=== PATIENT | female | born 1970 | race Caucasian/White ===

== ENCOUNTER 2018-05-09 13:37 | Inpatient (IN) | payer OTHER ==
[2018-05-09 15:06] LABS: BASO # 0.1 10^3/uL (0.0-0.2); BASO % 0.7 % (0.0-1.0); EOS # 0.2 10^3/uL (0.0-0.50); EOS % 2.4 % (0.0-3.0); HEMATOCRIT 33.6 % (36.0-47.0); HEMOGLOBIN 11.5 g/dl (12.0-15.5); IMMATURE GRANULOCYTE % 0.3 % (0-3.0); LYMPH # 2.5 10^3/uL (1.5-4.5); LYMPH % 32.4 % (24.0-44.0); MEAN CORPUSCULAR HGB CONC 34.2 g/dl (32.0-36.5); MEAN CORPUSCULAR VOLUME 110.9 fl (80.0-96.0); MONO % 12.5 % (0.0-5.0); NEUTROPHILS % 51.7 % (36.0-66.0); PLATELET COUNT, AUTOMATED 182 10^3/uL (150-450); RED BLOOD COUNT 3.03 10^6/uL (4.00-5.40); RED CELL DISTRIBUTION WIDTH 17.2 % (11.5-14.5); WHITE BLOOD COUNT 7.7 10^3/uL (4.0-10.0)
[2018-05-09 15:19] LABS: INR 1.51; PROTHROMBIN TIME 18.4 SECONDS (12.1-14.4)
[2018-05-09 15:39] LABS: ALBUMIN 1.9 GM/DL (3.2-5.2); ALBUMIN/GLOBULIN RATIO 0.31 (1.00-1.93); ALKALINE PHOSPHATASE 181 U/L (45-117); ALT/SGPT 25 U/L (12-78); ANION GAP 11 MEQ/L (8-16); AST/SGOT 103 U/L (7-37); BILIRUBIN,TOTAL 2.8 MG/DL (0.2-1.0); BLOOD UREA NITROGEN 6 MG/DL (7-18); CALCIUM LEVEL 7.7 MG/DL (8.5-10.1); CARBON DIOXIDE LEVEL 25 MEQ/L (21-32); CHLORIDE LEVEL 98 MEQ/L (98-107); CPK CREATINE PHOSPHOKINASE 53 U/L (26-192); CREATININE FOR GFR 0.63 MG/DL (0.55-1.30); GLOMERULAR FILTRATION RATE > 60.0 (>58); GLUCOSE, FASTING 90 MG/DL (70-100); MB/CK RELATIVE INDEX 2.64 (< OR =4); NT-PRO BNP 70 PG/ML (<125); POTASSIUM SERUM 3.9 MEQ/L (3.5-5.1); SODIUM LEVEL 134 MEQ/L (136-145); TROPONIN I < 0.02 NG/ML (< 0.10)
[2018-05-09] MEDS ORDERED: ISOVUE-370 76% 100ML VIAL (Q9967) As Ordered (15:58)
[2018-05-09] MEDS: FUROSEMIDE 40 MG/4 ML VIAL (J1940) IV (17:25)
[2018-05-09] MEDS: LevoFLOXacin IV 750 MG in APPROPRIATE DILUENT 1 EA IV (17:32)
[2018-05-09 17:40] LABS: FERRITIN 111 NG/ML (8-252)
[2018-05-09] MEDS ORDERED: ONDANSETRON 4MG/2ML VIAL (J2405) IV (17:45)
[2018-05-09] MEDS ORDERED: ALBUTEROL SULFATE 2.5 MG/0.5 ML INH NEB SOLN NEB (19:30)
[2018-05-09] MEDS: FOLIC ACID 1 MG TAB PO (19:30)
[2018-05-09] MEDS: THIAMINE 100 MG TAB PO (19:30)
[2018-05-09] MEDS: HEPARIN SOD (PORCINE) 5000 UNITS/ML VIAL SC (21:00)
[2018-05-10] MEDS: FUROSEMIDE 40 MG/4 ML VIAL (J1940) IV ×3 (01:00→16:23)
[2018-05-10 06:28] LABS: BASO % 0.4 % (0.0-1.0); EOS # 0.1 10^3/uL (0.0-0.50); EOS % 1.3 % (0.0-3.0); HEMATOCRIT 31.5 % (36.0-47.0); HEMOGLOBIN 10.8 g/dl (12.0-15.5); IMMATURE GRANULOCYTE % 0.1 % (0-3.0); LYMPH # 2.2 10^3/uL (1.5-4.5); LYMPH % 30.9 % (24.0-44.0); MEAN CORPUSCULAR HGB CONC 34.3 g/dl (32.0-36.5); MEAN CORPUSCULAR VOLUME 110.9 fl (80.0-96.0); NEUTROPHILS # 3.7 10^3/uL (1.8-7.7); NEUTROPHILS % 53.3 % (36.0-66.0); PLATELET COUNT, AUTOMATED 157 10^3/uL (150-450); RED BLOOD COUNT 2.84 10^6/uL (4.00-5.40); RED CELL DISTRIBUTION WIDTH 16.8 % (11.5-14.5)
[2018-05-10 06:46] LABS: ANION GAP 8 MEQ/L (8-16); BLOOD UREA NITROGEN 7 MG/DL (7-18); CALCIUM LEVEL 7.5 MG/DL (8.5-10.1); CARBON DIOXIDE LEVEL 27 MEQ/L (21-32); CHLORIDE LEVEL 99 MEQ/L (98-107); CREATININE FOR GFR 0.72 MG/DL (0.55-1.30); GLOMERULAR FILTRATION RATE > 60.0 (>58); GLUCOSE, FASTING 88 MG/DL (70-100); MAGNESIUM LEVEL 1.4 MG/DL (1.8-2.4); POTASSIUM SERUM 3.5 MEQ/L (3.5-5.1); SODIUM LEVEL 134 MEQ/L (136-145)
[2018-05-10 07:55] LABS: FREE T4 1.28 NG/DL (0.76-1.46)
[2018-05-10] MEDS: SPIRONOLACTONE 25 MG TAB PO (08:23)
[2018-05-10] MEDS: MAGNESIUM OXIDE 400 MG TAB (MAG-OX) PO ×2 (08:24→20:50)
[2018-05-10] MEDS: THIAMINE 100 MG TAB PO (08:24)
[2018-05-10] MEDS: FOLIC ACID 1 MG TAB PO (08:24)
[2018-05-10 13:00] LABS: RBC BODY FLUID < 2 10^3/uL (<2); WBC BODY FLUID 185 /uL (0-10)
[2018-05-10 13:01] LABS: APPEARANCE, BODY FLUID CLEAR (CLEAR); ASCITES FL COLOR YELLOW (COLORLESS); BF DIFF IF INDICATED? YES (NO); SOURCE, BODY FLUID ASCITES
[2018-05-10 13:21] LABS: SOURCE, BODY FLUID ALBUMIN ASCITES; SOURCE, BODY FLUID GLUCOSE ASCITES; SOURCE, BODY FLUID TOT PROTEIN ASCITES; TOTAL PROTEIN, BODY FLUID 0.9 G/DL (NOT ESTABLISHED)
[2018-05-11] MEDS: FUROSEMIDE 40 MG/4 ML VIAL (J1940) IV ×3 (00:32→17:27)
[2018-05-11 05:58] LABS: HEMATOCRIT 30.4 % (36.0-47.0); HEMOGLOBIN 10.7 g/dl (12.0-15.5); MEAN CORPUSCULAR HEMOGLOBIN 37.8 pg (27.0-33.0); MEAN CORPUSCULAR HGB CONC 35.2 g/dl (32.0-36.5); MEAN CORPUSCULAR VOLUME 107.4 fl (80.0-96.0); PLATELET COUNT, AUTOMATED 135 10^3/uL (150-450); RED BLOOD COUNT 2.83 10^6/uL (4.00-5.40); RED CELL DISTRIBUTION WIDTH 16.6 % (11.5-14.5); WHITE BLOOD COUNT 6.2 10^3/uL (4.0-10.0)
[2018-05-11 06:17] LABS: ALBUMIN 1.5 GM/DL (3.2-5.2); ALBUMIN/GLOBULIN RATIO 0.31 (1.00-1.93); ALKALINE PHOSPHATASE 125 U/L (45-117); ALT/SGPT 18 U/L (12-78); ANION GAP 8 MEQ/L (8-16); AST/SGOT 65 U/L (7-37); BILIRUBIN,TOTAL 2.5 MG/DL (0.2-1.0); BLOOD UREA NITROGEN 7 MG/DL (7-18); CALCIUM LEVEL 7.2 MG/DL (8.5-10.1); CARBON DIOXIDE LEVEL 31 MEQ/L (21-32); CHLORIDE LEVEL 95 MEQ/L (98-107); CREATININE FOR GFR 0.72 MG/DL (0.55-1.30); GLOMERULAR FILTRATION RATE > 60.0 (>58); GLUCOSE, FASTING 121 MG/DL (70-100); POTASSIUM SERUM 2.9 MEQ/L (3.5-5.1); SODIUM LEVEL 134 MEQ/L (136-145); TOTAL PROTEIN 6.4 GM/DL (6.4-8.2)
[2018-05-11] MEDS: POTASSIUM CHLORIDE 10 MEQ SR TABLET PO ×2 (06:50→20:18)
[2018-05-11] MEDS: KCL 10MEQ/100ML SWI (KRUN) 10 MEQ in APPROPRIATE DILUENT 1 EA IV ×4 (06:52→20:20)
[2018-05-11 08:30] LABS: MAGNESIUM LEVEL 1.3 MG/DL (1.8-2.4)
[2018-05-11] MEDS: MULTIVITAMINS/MINERALS THERAP 1 TAB PO (08:44)
[2018-05-11] MEDS: SPIRONOLACTONE 25 MG TAB PO (08:44)
[2018-05-11] MEDS: FOLIC ACID 1 MG TAB PO (08:44)
[2018-05-11] MEDS: THIAMINE 100 MG TAB PO (08:44)
[2018-05-11] MEDS: MAGNESIUM OXIDE 400 MG TAB (MAG-OX) PO ×2 (08:45→20:19)
[2018-05-11] MEDS ORDERED: SLF 3 ML SYR IV (10:15)
[2018-05-11 11:34] LABS: HEPATITIS B SURFACE ANTIGEN NEGATIVE (NEGATIVE)
[2018-05-11] MEDS: PROPRANOLOL 20 MG TAB PO ×3 (12:01→20:55)
[2018-05-11 12:02] LABS: HEPATITIS C VIRUS ABY INDEX 0.2 INDEX (<0.8)
[2018-05-11 12:03] LABS: HEPATITIS B CORE ANTIBODY IGM NEGATIVE (NEGATIVE)
[2018-05-11] MEDS: SLF 3 ML SYR IV ×2 (14:02→20:20)
[2018-05-11 17:41] LABS: ANION GAP 8 MEQ/L (8-16); BLOOD UREA NITROGEN 7 MG/DL (7-18); CALCIUM LEVEL 6.8 MG/DL (8.5-10.1); CARBON DIOXIDE LEVEL 31 MEQ/L (21-32); CHLORIDE LEVEL 95 MEQ/L (98-107); CREATININE FOR GFR 0.78 MG/DL (0.55-1.30); GLOMERULAR FILTRATION RATE > 60.0 (>58); GLUCOSE, FASTING 132 MG/DL (70-100); POTASSIUM SERUM 3.3 MEQ/L (3.5-5.1); SODIUM LEVEL 134 MEQ/L (136-145)
[2018-05-11] MEDS: ACETAMINOPHEN TAB 650MG DOSE (2X325MG) PO (20:20)
[2018-05-12] MEDS: FUROSEMIDE 40 MG/4 ML VIAL (J1940) IV ×3 (00:34→16:23)
[2018-05-12] MEDS: VANCOMYCIN HCL 500 MG in D5W MINI-BAG PLUS 100 ML IV (03:03)
[2018-05-12] MEDS: VANCOMYCIN HCL 1,000 MG, VIAL MATE ADAPTER 1 EACH in D5W 250 ML IV ×3 (04:28→20:31)
[2018-05-12 05:48] LABS: HEMATOCRIT 29.9 % (36.0-47.0); HEMOGLOBIN 10.5 g/dl (12.0-15.5); MEAN CORPUSCULAR HEMOGLOBIN 37.9 pg (27.0-33.0); MEAN CORPUSCULAR HGB CONC 35.1 g/dl (32.0-36.5); MEAN CORPUSCULAR VOLUME 107.9 fl (80.0-96.0); PLATELET COUNT, AUTOMATED 141 10^3/uL (150-450); RED BLOOD COUNT 2.77 10^6/uL (4.00-5.40); RED CELL DISTRIBUTION WIDTH 15.9 % (11.5-14.5); WHITE BLOOD COUNT 6.9 10^3/uL (4.0-10.0)
[2018-05-12 05:57] LABS: INR 1.66; PROTHROMBIN TIME 19.9 SECONDS (12.1-14.4)
[2018-05-12] MEDS: MEROPENEM INJ 1 GM in APPROPRIATE DILUENT 1 EA IV ×3 (06:02→21:48)
[2018-05-12] MEDS: SLF 3 ML SYR IV ×3 (06:02→20:32)
[2018-05-12 06:16] LABS: ALBUMIN 1.4 GM/DL (3.2-5.2); ALBUMIN/GLOBULIN RATIO 0.31 (1.00-1.93); ALKALINE PHOSPHATASE 126 U/L (45-117); ALT/SGPT 16 U/L (12-78); ANION GAP 5 MEQ/L (8-16); AST/SGOT 60 U/L (7-37); BILIRUBIN,TOTAL 1.9 MG/DL (0.2-1.0); BLOOD UREA NITROGEN 7 MG/DL (7-18); CALCIUM LEVEL 6.4 MG/DL (8.5-10.1); CARBON DIOXIDE LEVEL 33 MEQ/L (21-32); CHLORIDE LEVEL 94 MEQ/L (98-107); CREATININE FOR GFR 0.74 MG/DL (0.55-1.30); GLOMERULAR FILTRATION RATE > 60.0 (>58); GLUCOSE, FASTING 120 MG/DL (70-100); POTASSIUM SERUM 3.3 MEQ/L (3.5-5.1); SODIUM LEVEL 132 MEQ/L (136-145); TOTAL PROTEIN 5.9 GM/DL (6.4-8.2)
[2018-05-12] MEDS: POTASSIUM CHLORIDE 10 MEQ SR TABLET PO ×2 (07:54→09:51)
[2018-05-12 08:58] LABS: C REACTIVE PROTEIN QUANTITATIV 1.97 MG/DL (0.00-0.30)
[2018-05-12 08:58] LABS: MAGNESIUM LEVEL 1.3 MG/DL (1.8-2.4)
[2018-05-12] MEDS: PROPRANOLOL 20 MG TAB PO ×2 (09:00→20:32)
[2018-05-12] MEDS: MAGNESIUM OXIDE 400 MG TAB (MAG-OX) PO ×2 (09:50→20:31)
[2018-05-12] MEDS: SPIRONOLACTONE 25 MG TAB PO (09:51)
[2018-05-12] MEDS: THIAMINE 100 MG TAB PO (09:51)
[2018-05-12] MEDS: MULTIVITAMINS/MINERALS THERAP 1 TAB PO (09:51)
[2018-05-12] MEDS: FOLIC ACID 1 MG TAB PO (09:52)
[2018-05-12 14:46] LABS: TYPE AND SCREEN 1
[2018-05-12] MEDS: MAG SULF 1GM/100ML (MAG RUN) 1 GM in APPROPRIATE DILUENT 1 EA IV ×3 (15:14→17:17)
[2018-05-12 19:54] LABS: VANCOMYCIN LEVEL TROUGH 17.1 UG/ML (10.0-20.0)
[2018-05-13] MEDS: FUROSEMIDE 40 MG/4 ML VIAL (J1940) IV ×3 (00:27→17:19)
[2018-05-13] MEDS: VANCOMYCIN HCL 1,000 MG, VIAL MATE ADAPTER 1 EACH in D5W 250 ML IV ×3 (03:39→20:38)
[2018-05-13] MEDS: SLF 3 ML SYR IV ×3 (05:03→20:38)
[2018-05-13] MEDS: MEROPENEM INJ 1 GM in APPROPRIATE DILUENT 1 EA IV ×3 (05:04→21:48)
[2018-05-13 05:50] LABS: HEMATOCRIT 29.6 % (36.0-47.0); HEMOGLOBIN 10.4 g/dl (12.0-15.5); MEAN CORPUSCULAR HEMOGLOBIN 37.8 pg (27.0-33.0); MEAN CORPUSCULAR HGB CONC 35.1 g/dl (32.0-36.5); MEAN CORPUSCULAR VOLUME 107.6 fl (80.0-96.0); PLATELET COUNT, AUTOMATED 153 10^3/uL (150-450); RED BLOOD COUNT 2.75 10^6/uL (4.00-5.40); RED CELL DISTRIBUTION WIDTH 15.7 % (11.5-14.5)
[2018-05-13 06:07] LABS: PROTHROMBIN TIME 19.3 SECONDS (12.1-14.4)
[2018-05-13 06:31] LABS: ALBUMIN 1.8 GM/DL (3.2-5.2); ALBUMIN/GLOBULIN RATIO 0.42 (1.00-1.93); ALKALINE PHOSPHATASE 109 U/L (45-117); ALT/SGPT 14 U/L (12-78); ANION GAP 5 MEQ/L (8-16); AST/SGOT 64 U/L (7-37); BILIRUBIN,TOTAL 2.6 MG/DL (0.2-1.0); BLOOD UREA NITROGEN 7 MG/DL (7-18); C REACTIVE PROTEIN QUANTITATIV 1.44 MG/DL (0.00-0.30); CALCIUM LEVEL 6.5 MG/DL (8.5-10.1); CARBON DIOXIDE LEVEL 33 MEQ/L (21-32); CHLORIDE LEVEL 92 MEQ/L (98-107); GLOMERULAR FILTRATION RATE > 60.0 (>58); GLUCOSE, FASTING 111 MG/DL (70-100); MAGNESIUM LEVEL 1.8 MG/DL (1.8-2.4); POTASSIUM SERUM 3.5 MEQ/L (3.5-5.1); SODIUM LEVEL 130 MEQ/L (136-145); TOTAL PROTEIN 6.1 GM/DL (6.4-8.2)
[2018-05-13] MEDS: SPIRONOLACTONE 25 MG TAB PO (09:10)
[2018-05-13] MEDS: FOLIC ACID 1 MG TAB PO (09:11)
[2018-05-13] MEDS: THIAMINE 100 MG TAB PO (09:11)
[2018-05-13] MEDS: MULTIVITAMINS/MINERALS THERAP 1 TAB PO (09:11)
[2018-05-13] MEDS: PROPRANOLOL 20 MG TAB PO ×2 (09:11→20:38)
[2018-05-13] MEDS: MAGNESIUM OXIDE 400 MG TAB (MAG-OX) PO ×2 (09:11→20:38)
[2018-05-13 16:27] LABS: KETONE, URINE AUTO RFX TRACE mg/dL (NEGATIVE); LEUKOCYTE ESTERASE UR AUTO RFX NEGATIVE (NEGATIVE); MUCUS, URINE RFX SMALL (NEGATIVE); NITRITE, URINE AUTO RFX NEGATIVE (NEGATIVE); RBC, URINE AUTO RFX 2 /HPF (0-3); SPECIFIC GRAVITY UR AUTO RFX 1.018 (1.002-1.035); SQUAM EPITHELIAL CELL UR AURFX 6 /HPF (0-6); WBC, URINE AUTO RFX 2 /HPF (0-3)
[2018-05-14] MEDS: FUROSEMIDE 40 MG/4 ML VIAL (J1940) IV (00:19)
[2018-05-14] MEDS: VANCOMYCIN HCL 1,000 MG, VIAL MATE ADAPTER 1 EACH in D5W 250 ML IV ×3 (03:38→22:12)
[2018-05-14] MEDS: SLF 3 ML SYR IV ×3 (05:09→21:17)
[2018-05-14] MEDS: MEROPENEM INJ 1 GM in APPROPRIATE DILUENT 1 EA IV ×3 (05:09→21:17)
[2018-05-14 05:21] LABS: HEMATOCRIT 30.7 % (36.0-47.0); HEMOGLOBIN 10.9 g/dl (12.0-15.5); MEAN CORPUSCULAR HEMOGLOBIN 38.2 pg (27.0-33.0); MEAN CORPUSCULAR HGB CONC 35.5 g/dl (32.0-36.5); MEAN CORPUSCULAR VOLUME 107.7 fl (80.0-96.0); PLATELET COUNT, AUTOMATED 165 10^3/uL (150-450); RED BLOOD COUNT 2.85 10^6/uL (4.00-5.40); RED CELL DISTRIBUTION WIDTH 15.6 % (11.5-14.5)
[2018-05-14 05:34] LABS: INR 1.56; PROTHROMBIN TIME 18.9 SECONDS (12.1-14.4)
[2018-05-14 05:53] LABS: ALBUMIN 1.8 GM/DL (3.2-5.2); ALBUMIN/GLOBULIN RATIO 0.41 (1.00-1.93); ALKALINE PHOSPHATASE 112 U/L (45-117); ALT/SGPT 19 U/L (12-78); ANION GAP 7 MEQ/L (8-16); AST/SGOT 73 U/L (7-37); BILIRUBIN,TOTAL 1.9 MG/DL (0.2-1.0); BLOOD UREA NITROGEN 6 MG/DL (7-18); C REACTIVE PROTEIN QUANTITATIV 1.24 MG/DL (0.00-0.30); CALCIUM LEVEL 6.9 MG/DL (8.5-10.1); CARBON DIOXIDE LEVEL 32 MEQ/L (21-32); CHLORIDE LEVEL 91 MEQ/L (98-107); CREATININE FOR GFR 0.63 MG/DL (0.55-1.30); GLOMERULAR FILTRATION RATE > 60.0 (>58); GLUCOSE, FASTING 125 MG/DL (70-100); MAGNESIUM LEVEL 1.7 MG/DL (1.8-2.4); POTASSIUM SERUM 2.9 MEQ/L (3.5-5.1); SODIUM LEVEL 130 MEQ/L (136-145); TOTAL PROTEIN 6.2 GM/DL (6.4-8.2)
[2018-05-14] MEDS: POTASSIUM CHLORIDE 10 MEQ SR TABLET PO ×3 (06:07→08:10)
[2018-05-14 06:39] LABS: ERYTHROCYTE SEDIMENTATION RATE 40 mm/hr (0-20)
[2018-05-14] MEDS: MULTIVITAMINS/MINERALS THERAP 1 TAB PO (08:09)
[2018-05-14] MEDS: MAGNESIUM OXIDE 400 MG TAB (MAG-OX) PO ×2 (08:09→21:17)
[2018-05-14] MEDS: FOLIC ACID 1 MG TAB PO (08:09)
[2018-05-14] MEDS: FUROSEMIDE 40 MG TAB PO (08:09)
[2018-05-14] MEDS: THIAMINE 100 MG TAB PO (08:09)
[2018-05-14] MEDS: SPIRONOLACTONE 50 MG TAB PO (08:10)
[2018-05-14] MEDS: PROPRANOLOL 20 MG TAB PO ×2 (08:10→21:17)
[2018-05-14 11:25] LABS: VANCOMYCIN LEVEL TROUGH 22.2 UG/ML (10.0-20.0)
[2018-05-14] MEDS: CETIRIZINE (ZyrTEC) 10 MG TAB PO (21:17)
[2018-05-15] MEDS: SLF 3 ML SYR IV ×3 (05:05→22:19)
[2018-05-15] MEDS: MEROPENEM INJ 1 GM in APPROPRIATE DILUENT 1 EA IV ×3 (05:05→22:19)
[2018-05-15] MEDS: VANCOMYCIN HCL 1,000 MG, VIAL MATE ADAPTER 1 EACH in D5W 250 ML IV (05:35)
[2018-05-15 06:13] LABS: BASO % 0.4 % (0.0-1.0); EOS # 0.3 10^3/uL (0.0-0.50); EOS % 3.3 % (0.0-3.0); HEMATOCRIT 31.8 % (36.0-47.0); IMMATURE GRANULOCYTE % 0.5 % (0-3.0); LYMPH # 2.6 10^3/uL (1.5-4.5); LYMPH % 32.7 % (24.0-44.0); MEAN CORPUSCULAR HEMOGLOBIN 38.2 pg (27.0-33.0); MEAN CORPUSCULAR HGB CONC 34.6 g/dl (32.0-36.5); MEAN CORPUSCULAR VOLUME 110.4 fl (80.0-96.0); MONO % 12.7 % (0.0-5.0); NEUTROPHILS # 3.9 10^3/uL (1.8-7.7); NEUTROPHILS % 50.4 % (36.0-66.0); PLATELET COUNT, AUTOMATED 173 10^3/uL (150-450); RED BLOOD COUNT 2.88 10^6/uL (4.00-5.40); RED CELL DISTRIBUTION WIDTH 15.4 % (11.5-14.5); WHITE BLOOD COUNT 7.8 10^3/uL (4.0-10.0)
[2018-05-15 06:25] LABS: PROTHROMBIN TIME 17.4 SECONDS (12.1-14.4)
[2018-05-15 06:39] LABS: ALBUMIN 1.6 GM/DL (3.2-5.2); ALBUMIN/GLOBULIN RATIO 0.33 (1.00-1.93); ALKALINE PHOSPHATASE 112 U/L (45-117); ALT/SGPT 23 U/L (12-78); ANION GAP 5 MEQ/L (8-16); AST/SGOT 96 U/L (7-37); BILIRUBIN,TOTAL 1.7 MG/DL (0.2-1.0); BLOOD UREA NITROGEN 7 MG/DL (7-18); C REACTIVE PROTEIN QUANTITATIV 1.19 MG/DL (0.00-0.30); CALCIUM LEVEL 7.2 MG/DL (8.5-10.1); CARBON DIOXIDE LEVEL 31 MEQ/L (21-32); CHLORIDE LEVEL 92 MEQ/L (98-107); CREATININE FOR GFR 0.66 MG/DL (0.55-1.30); GLOMERULAR FILTRATION RATE > 60.0 (>58); GLUCOSE, FASTING 138 MG/DL (70-100); POTASSIUM SERUM 3.7 MEQ/L (3.5-5.1); SODIUM LEVEL 128 MEQ/L (136-145); TOTAL PROTEIN 6.4 GM/DL (6.4-8.2)
[2018-05-15] MEDS: FOLIC ACID 1 MG TAB PO (08:29)
[2018-05-15] MEDS: SPIRONOLACTONE 50 MG TAB PO (08:29)
[2018-05-15] MEDS: FUROSEMIDE 40 MG TAB PO (08:30)
[2018-05-15] MEDS: THIAMINE 100 MG TAB PO (08:30)
[2018-05-15] MEDS: MULTIVITAMINS/MINERALS THERAP 1 TAB PO (08:30)
[2018-05-15] MEDS: MAGNESIUM OXIDE 400 MG TAB (MAG-OX) PO ×2 (08:30→20:12)
[2018-05-15] MEDS: PROPRANOLOL 20 MG TAB PO ×2 (08:30→20:04)
[2018-05-15] MEDS: hydrOXYzine 25 MG TAB PO ×4 (11:28→20:12)
[2018-05-15] MEDS: FLUCONAZOLE 100 MG TAB PO (11:28)
[2018-05-15] MEDS: LACTOBACILLUS ACIDOPHILUS CAP (BACID) PO ×2 (11:28→18:32)
[2018-05-15 13:20] LABS: VANCOMYCIN LEVEL TROUGH 21.1 UG/ML (10.0-20.0)
[2018-05-15] MEDS: ACETAMINOPHEN TAB 650MG DOSE (2X325MG) PO (14:03)
[2018-05-15] MEDS: VANCOMYCIN HCL 750 MG, VIAL MATE ADAPTER 1 EACH in D5W 250 ML IV (16:38)
[2018-05-15] MEDS: CETIRIZINE (ZyrTEC) 10 MG TAB PO (20:12)
[2018-05-16] MEDS: VANCOMYCIN HCL 750 MG, VIAL MATE ADAPTER 1 EACH in D5W 250 ML IV ×3 (01:01→19:45)
[2018-05-16] MEDS: MEROPENEM INJ 1 GM in APPROPRIATE DILUENT 1 EA IV ×3 (06:03→20:51)
[2018-05-16] MEDS: SLF 3 ML SYR IV ×3 (06:04→20:52)
[2018-05-16 06:13] LABS: HEMATOCRIT 31.3 % (36.0-47.0); HEMOGLOBIN 11.2 g/dl (12.0-15.5); MEAN CORPUSCULAR HEMOGLOBIN 38.5 pg (27.0-33.0); MEAN CORPUSCULAR HGB CONC 35.8 g/dl (32.0-36.5); MEAN CORPUSCULAR VOLUME 107.6 fl (80.0-96.0); PLATELET COUNT, AUTOMATED 168 10^3/uL (150-450); RED BLOOD COUNT 2.91 10^6/uL (4.00-5.40); WHITE BLOOD COUNT 7.6 10^3/uL (4.0-10.0)
[2018-05-16 06:35] LABS: ALBUMIN 1.8 GM/DL (3.2-5.2); ALBUMIN/GLOBULIN RATIO 0.38 (1.00-1.93); ALKALINE PHOSPHATASE 113 U/L (45-117); ALT/SGPT 25 U/L (12-78); ANION GAP 7 MEQ/L (8-16); AST/SGOT 106 U/L (7-37); BILIRUBIN,TOTAL 2.1 MG/DL (0.2-1.0); BLOOD UREA NITROGEN 7 MG/DL (7-18); C REACTIVE PROTEIN QUANTITATIV 1.19 MG/DL (0.00-0.30); CALCIUM LEVEL 7.6 MG/DL (8.5-10.1); CARBON DIOXIDE LEVEL 30 MEQ/L (21-32); CHLORIDE LEVEL 90 MEQ/L (98-107); GLOMERULAR FILTRATION RATE > 60.0 (>58); GLUCOSE, FASTING 88 MG/DL (70-100); MAGNESIUM LEVEL 2.1 MG/DL (1.8-2.4); POTASSIUM SERUM 3.8 MEQ/L (3.5-5.1); SODIUM LEVEL 127 MEQ/L (136-145); TOTAL PROTEIN 6.6 GM/DL (6.4-8.2)
[2018-05-16] MEDS: LACTOBACILLUS ACIDOPHILUS CAP (BACID) PO ×2 (08:39→18:22)
[2018-05-16] MEDS: FLUCONAZOLE 100 MG TAB PO (08:39)
[2018-05-16] MEDS: FOLIC ACID 1 MG TAB PO (08:40)
[2018-05-16] MEDS: THIAMINE 100 MG TAB PO (08:40)
[2018-05-16] MEDS: hydrOXYzine 25 MG TAB PO ×4 (08:40→20:26)
[2018-05-16] MEDS: MULTIVITAMINS/MINERALS THERAP 1 TAB PO (08:40)
[2018-05-16] MEDS: MAGNESIUM OXIDE 400 MG TAB (MAG-OX) PO ×2 (08:40→20:26)
[2018-05-16] MEDS: SPIRONOLACTONE 50 MG TAB PO (08:40)
[2018-05-16] MEDS: PROPRANOLOL 20 MG TAB PO ×2 (08:40→20:26)
[2018-05-16] MEDS: FUROSEMIDE 40 MG TAB PO (08:41)
[2018-05-16 10:46] LABS: TYPE AND SCREEN 1
[2018-05-16 13:26] LABS: ANION GAP 5 MEQ/L (8-16); BLOOD UREA NITROGEN 7 MG/DL (7-18); CALCIUM LEVEL 7.8 MG/DL (8.5-10.1); CARBON DIOXIDE LEVEL 32 MEQ/L (21-32); CHLORIDE LEVEL 88 MEQ/L (98-107); CREATININE FOR GFR 0.58 MG/DL (0.55-1.30); GLOMERULAR FILTRATION RATE > 60.0 (>58); GLUCOSE, FASTING 102 MG/DL (70-100); POTASSIUM SERUM 3.9 MEQ/L (3.5-5.1); SODIUM LEVEL 125 MEQ/L (136-145)
[2018-05-16] MEDS: SODIUM CHLORIDE 1 GM TAB PO ×2 (13:27→18:21)
[2018-05-16] MEDS ORDERED: SILVER NITRATE APPLICATOR As Ordered (15:35)
[2018-05-16] MEDS: SILVER NITRATE APPLICATOR TOP (15:40)
[2018-05-16 16:25] LABS: VANCOMYCIN LEVEL TROUGH 19.1 UG/ML (10.0-20.0)
[2018-05-16 19:20] LABS: ANION GAP 5 MEQ/L (8-16); BLOOD UREA NITROGEN 7 MG/DL (7-18); CALCIUM LEVEL 7.6 MG/DL (8.5-10.1); CARBON DIOXIDE LEVEL 31 MEQ/L (21-32); CHLORIDE LEVEL 90 MEQ/L (98-107); CREATININE FOR GFR 0.66 MG/DL (0.55-1.30); GLOMERULAR FILTRATION RATE > 60.0 (>58); GLUCOSE, FASTING 123 MG/DL (70-100); POTASSIUM SERUM 3.7 MEQ/L (3.5-5.1); SODIUM LEVEL 126 MEQ/L (136-145)
[2018-05-16] MEDS: CETIRIZINE (ZyrTEC) 10 MG TAB PO (20:25)
[2018-05-17 01:05] LABS: ANION GAP 6 MEQ/L (8-16); BLOOD UREA NITROGEN 7 MG/DL (7-18); CARBON DIOXIDE LEVEL 30 MEQ/L (21-32); CHLORIDE LEVEL 94 MEQ/L (98-107); CREATININE FOR GFR 0.67 MG/DL (0.55-1.30); GLOMERULAR FILTRATION RATE > 60.0 (>58); GLUCOSE, FASTING 137 MG/DL (70-100); POTASSIUM SERUM 3.8 MEQ/L (3.5-5.1); SODIUM LEVEL 130 MEQ/L (136-145)
[2018-05-17] MEDS: VANCOMYCIN HCL 750 MG, VIAL MATE ADAPTER 1 EACH in D5W 250 ML IV ×3 (04:18→20:43)
[2018-05-17] MEDS: MEROPENEM INJ 1 GM in APPROPRIATE DILUENT 1 EA IV ×3 (05:27→21:56)
[2018-05-17] MEDS: SLF 3 ML SYR IV ×3 (05:27→20:44)
[2018-05-17 05:51] LABS: HEMATOCRIT 28.9 % (36.0-47.0); MEAN CORPUSCULAR HEMOGLOBIN 37.9 pg (27.0-33.0); MEAN CORPUSCULAR HGB CONC 34.6 g/dl (32.0-36.5); MEAN CORPUSCULAR VOLUME 109.5 fl (80.0-96.0); PLATELET COUNT, AUTOMATED 150 10^3/uL (150-450); RED BLOOD COUNT 2.64 10^6/uL (4.00-5.40); RED CELL DISTRIBUTION WIDTH 14.6 % (11.5-14.5); WHITE BLOOD COUNT 5.4 10^3/uL (4.0-10.0)
[2018-05-17 05:59] LABS: ALBUMIN 1.9 GM/DL (3.2-5.2); ALBUMIN/GLOBULIN RATIO 0.46 (1.00-1.93); ALKALINE PHOSPHATASE 101 U/L (45-117); ALT/SGPT 22 U/L (12-78); ANION GAP 5 MEQ/L (8-16); AST/SGOT 76 U/L (7-37); BILIRUBIN,TOTAL 1.6 MG/DL (0.2-1.0); BLOOD UREA NITROGEN 6 MG/DL (7-18); C REACTIVE PROTEIN QUANTITATIV 1.21 MG/DL (0.00-0.30); CALCIUM LEVEL 7.4 MG/DL (8.5-10.1); CARBON DIOXIDE LEVEL 30 MEQ/L (21-32); CHLORIDE LEVEL 93 MEQ/L (98-107); CREATININE FOR GFR 0.66 MG/DL (0.55-1.30); GLOMERULAR FILTRATION RATE > 60.0 (>58); GLUCOSE, FASTING 175 MG/DL (70-100); POTASSIUM SERUM 3.4 MEQ/L (3.5-5.1); SODIUM LEVEL 128 MEQ/L (136-145)
[2018-05-17 08:41] LABS: NT-PRO BNP 190 PG/ML (<125)
[2018-05-17] MEDS: POTASSIUM CHLORIDE 10 MEQ SR TABLET PO (09:49)
[2018-05-17] MEDS: THIAMINE 100 MG TAB PO (09:50)
[2018-05-17] MEDS: SPIRONOLACTONE 50 MG TAB PO (09:50)
[2018-05-17] MEDS: FOLIC ACID 1 MG TAB PO (09:50)
[2018-05-17] MEDS: MAGNESIUM OXIDE 400 MG TAB (MAG-OX) PO ×2 (09:50→20:43)
[2018-05-17] MEDS: hydrOXYzine 25 MG TAB PO ×4 (09:50→20:43)
[2018-05-17] MEDS: PROPRANOLOL 20 MG TAB PO ×2 (09:50→20:47)
[2018-05-17] MEDS: SODIUM CHLORIDE 1 GM TAB PO ×3 (09:51→18:32)
[2018-05-17] MEDS: LACTOBACILLUS ACIDOPHILUS CAP (BACID) PO ×2 (09:51→18:32)
[2018-05-17] MEDS: FUROSEMIDE 40 MG TAB PO (09:51)
[2018-05-17] MEDS: FLUCONAZOLE 100 MG TAB PO (09:51)
[2018-05-17] MEDS: MULTIVITAMINS/MINERALS THERAP 1 TAB PO (09:51)
[2018-05-17 13:40] LABS: ANION GAP 7 MEQ/L (8-16); BLOOD UREA NITROGEN 6 MG/DL (7-18); CALCIUM LEVEL 7.2 MG/DL (8.5-10.1); CARBON DIOXIDE LEVEL 28 MEQ/L (21-32); CHLORIDE LEVEL 94 MEQ/L (98-107); CREATININE FOR GFR 0.65 MG/DL (0.55-1.30); GLOMERULAR FILTRATION RATE > 60.0 (>58); GLUCOSE, FASTING 112 MG/DL (70-100); POTASSIUM SERUM 3.6 MEQ/L (3.5-5.1); SODIUM LEVEL 129 MEQ/L (136-145)
[2018-05-17 18:35] LABS: ANION GAP 6 MEQ/L (8-16); BLOOD UREA NITROGEN 7 MG/DL (7-18); CALCIUM LEVEL 7.4 MG/DL (8.5-10.1); CARBON DIOXIDE LEVEL 30 MEQ/L (21-32); CHLORIDE LEVEL 94 MEQ/L (98-107); CREATININE FOR GFR 0.69 MG/DL (0.55-1.30); GLOMERULAR FILTRATION RATE > 60.0 (>58); GLUCOSE, FASTING 103 MG/DL (70-100); POTASSIUM SERUM 4.2 MEQ/L (3.5-5.1); SODIUM LEVEL 130 MEQ/L (136-145)
[2018-05-17] MEDS: CETIRIZINE (ZyrTEC) 10 MG TAB PO (20:43)
[2018-05-18 00:51] LABS: ANION GAP 8 MEQ/L (8-16); BLOOD UREA NITROGEN 7 MG/DL (7-18); CALCIUM LEVEL 7.1 MG/DL (8.5-10.1); CARBON DIOXIDE LEVEL 28 MEQ/L (21-32); CHLORIDE LEVEL 96 MEQ/L (98-107); CREATININE FOR GFR 0.65 MG/DL (0.55-1.30); GLOMERULAR FILTRATION RATE > 60.0 (>58); GLUCOSE, FASTING 114 MG/DL (70-100); POTASSIUM SERUM 4.3 MEQ/L (3.5-5.1); SODIUM LEVEL 132 MEQ/L (136-145)
[2018-05-18] MEDS: VANCOMYCIN HCL 750 MG, VIAL MATE ADAPTER 1 EACH in D5W 250 ML IV ×3 (04:20→20:19)
[2018-05-18] MEDS: SLF 3 ML SYR IV ×3 (05:41→21:54)
[2018-05-18] MEDS: MEROPENEM INJ 1 GM in APPROPRIATE DILUENT 1 EA IV ×3 (05:41→21:54)
[2018-05-18 07:12] LABS: ANION GAP 4 MEQ/L (8-16); BLOOD UREA NITROGEN 6 MG/DL (7-18); C REACTIVE PROTEIN QUANTITATIV 1.16 MG/DL (0.00-0.30); CALCIUM LEVEL 7.5 MG/DL (8.5-10.1); CARBON DIOXIDE LEVEL 30 MEQ/L (21-32); CHLORIDE LEVEL 95 MEQ/L (98-107); GLOMERULAR FILTRATION RATE > 60.0 (>58); GLUCOSE, FASTING 102 MG/DL (70-100); SODIUM LEVEL 129 MEQ/L (136-145)
[2018-05-18] MEDS: LACTOBACILLUS ACIDOPHILUS CAP (BACID) PO ×2 (08:12→17:36)
[2018-05-18] MEDS: MULTIVITAMINS/MINERALS THERAP 1 TAB PO (08:12)
[2018-05-18] MEDS: hydrOXYzine 25 MG TAB PO ×4 (08:12→20:18)
[2018-05-18] MEDS: FLUCONAZOLE 100 MG TAB PO (08:12)
[2018-05-18] MEDS: THIAMINE 100 MG TAB PO (08:12)
[2018-05-18] MEDS: FUROSEMIDE 40 MG TAB PO (08:12)
[2018-05-18] MEDS: MAGNESIUM OXIDE 400 MG TAB (MAG-OX) PO ×2 (08:13→20:18)
[2018-05-18] MEDS: FOLIC ACID 1 MG TAB PO (08:13)
[2018-05-18] MEDS: PROPRANOLOL 20 MG TAB PO (08:14)
[2018-05-18] MEDS: SPIRONOLACTONE 50 MG TAB PO (08:15)
[2018-05-18] MEDS: SODIUM CHLORIDE 1 GM TAB PO ×3 (08:18→17:36)
[2018-05-18 12:51] LABS: ANION GAP 6 MEQ/L (8-16); BLOOD UREA NITROGEN 7 MG/DL (7-18); CALCIUM LEVEL 7.3 MG/DL (8.5-10.1); CARBON DIOXIDE LEVEL 29 MEQ/L (21-32); CHLORIDE LEVEL 95 MEQ/L (98-107); CREATININE FOR GFR 0.66 MG/DL (0.55-1.30); GLOMERULAR FILTRATION RATE > 60.0 (>58); GLUCOSE, FASTING 124 MG/DL (70-100); POTASSIUM SERUM 4.2 MEQ/L (3.5-5.1); SODIUM LEVEL 130 MEQ/L (136-145)
[2018-05-18] MEDS: FUROSEMIDE 20 MG/2 ML VIAL (J1940) IV ×2 (14:31→20:19)
[2018-05-18] MEDS: ACETAMINOPHEN TAB 650MG DOSE (2X325MG) PO (14:34)
[2018-05-18 15:29] LABS: TYPE AND SCREEN 1
[2018-05-18 19:25] LABS: ANION GAP 6 MEQ/L (8-16); BLOOD UREA NITROGEN 8 MG/DL (7-18); CALCIUM LEVEL 7.6 MG/DL (8.5-10.1); CARBON DIOXIDE LEVEL 28 MEQ/L (21-32); CHLORIDE LEVEL 94 MEQ/L (98-107); CREATININE FOR GFR 0.68 MG/DL (0.55-1.30); GLOMERULAR FILTRATION RATE > 60.0 (>58); GLUCOSE, FASTING 129 MG/DL (70-100); POTASSIUM SERUM 3.9 MEQ/L (3.5-5.1); SODIUM LEVEL 128 MEQ/L (136-145)
[2018-05-18] MEDS: CETIRIZINE (ZyrTEC) 10 MG TAB PO (20:18)
[2018-05-18 20:59] LABS: C REACTIVE PROTEIN QUANTITATIV 1.18 MG/DL (0.00-0.30)
[2018-05-18 21:25] LABS: ERYTHROCYTE SEDIMENTATION RATE 54 mm/hr (0-20)
[2018-05-19] MEDS: FUROSEMIDE 20 MG/2 ML VIAL (J1940) IV ×6 (02:00→23:48)
[2018-05-19] MEDS: VANCOMYCIN HCL 750 MG, VIAL MATE ADAPTER 1 EACH in D5W 250 ML IV ×3 (03:32→22:42)
[2018-05-19] MEDS: SLF 3 ML SYR IV ×3 (05:57→22:15)
[2018-05-19] MEDS: MEROPENEM INJ 1 GM in APPROPRIATE DILUENT 1 EA IV ×2 (05:58→14:50)
[2018-05-19 06:34] LABS: C REACTIVE PROTEIN QUANTITATIV 1.08 MG/DL (0.00-0.30)
[2018-05-19] MEDS: MULTIVITAMINS/MINERALS THERAP 1 TAB PO (08:20)
[2018-05-19] MEDS: THIAMINE 100 MG TAB PO (08:20)
[2018-05-19] MEDS: LACTOBACILLUS ACIDOPHILUS CAP (BACID) PO ×2 (08:20→17:37)
[2018-05-19] MEDS: FLUCONAZOLE 100 MG TAB PO (08:20)
[2018-05-19] MEDS: MAGNESIUM OXIDE 400 MG TAB (MAG-OX) PO ×2 (08:20→22:15)
[2018-05-19] MEDS: FOLIC ACID 1 MG TAB PO (08:21)
[2018-05-19] MEDS: hydrOXYzine 25 MG TAB PO ×5 (08:21→22:15)
[2018-05-19] MEDS: SODIUM CHLORIDE 1 GM TAB PO ×3 (08:21→17:36)
[2018-05-19] MEDS: FLUDROCORTISONE ACETATE 0.1 MG TAB PO (10:49)
[2018-05-19 11:30] LABS: VANCOMYCIN LEVEL TROUGH 19.6 UG/ML (10.0-20.0)
[2018-05-19] MEDS: ACETAMINOPHEN TAB 650MG DOSE (2X325MG) PO (14:07)
[2018-05-19] MEDS: MIDODRINE 2.5 MG TAB PO ×2 (14:08→17:36)
[2018-05-19 15:20] LABS: ANION GAP 7 MEQ/L (8-16); BLOOD UREA NITROGEN 8 MG/DL (7-18); CALCIUM LEVEL 7.5 MG/DL (8.5-10.1); CARBON DIOXIDE LEVEL 26 MEQ/L (21-32); CHLORIDE LEVEL 95 MEQ/L (98-107); GLOMERULAR FILTRATION RATE > 60.0 (>58); GLUCOSE, FASTING 114 MG/DL (70-100); POTASSIUM SERUM 4.2 MEQ/L (3.5-5.1); SODIUM LEVEL 128 MEQ/L (136-145)
[2018-05-19] MEDS: TOLVAPTAN 7.5 MG HALF-TAB PO (16:34)
[2018-05-19 17:29] LABS: TYPE AND SCREEN 1
[2018-05-19] MEDS: CETIRIZINE (ZyrTEC) 10 MG TAB PO (22:15)
[2018-05-20] MEDS: MEROPENEM INJ 1 GM in APPROPRIATE DILUENT 1 EA IV ×4 (01:08→21:42)
[2018-05-20] MEDS: FUROSEMIDE 20 MG/2 ML VIAL (J1940) IV ×2 (04:12→08:01)
[2018-05-20] MEDS: VANCOMYCIN HCL 750 MG, VIAL MATE ADAPTER 1 EACH in D5W 250 ML IV ×3 (04:12→20:12)
[2018-05-20] MEDS: SLF 3 ML SYR IV ×3 (06:00→21:42)
[2018-05-20 06:39] LABS: ANION GAP 7 MEQ/L (8-16); BLOOD UREA NITROGEN 8 MG/DL (7-18); CALCIUM LEVEL 7.9 MG/DL (8.5-10.1); CARBON DIOXIDE LEVEL 29 MEQ/L (21-32); CHLORIDE LEVEL 96 MEQ/L (98-107); CREATININE FOR GFR 0.71 MG/DL (0.55-1.30); GLOMERULAR FILTRATION RATE > 60.0 (>58); GLUCOSE, FASTING 118 MG/DL (70-100); POTASSIUM SERUM 3.3 MEQ/L (3.5-5.1); SODIUM LEVEL 132 MEQ/L (136-145)
[2018-05-20 06:58] LABS: BASO % 0.8 % (0.0-1.0); EOS # 0.2 10^3/uL (0.0-0.50); EOS % 4.2 % (0.0-3.0); HEMATOCRIT 27.3 % (36.0-47.0); HEMOGLOBIN 9.6 g/dl (12.0-15.5); IMMATURE GRANULOCYTE % 0.2 % (0-3.0); LYMPH # 1.6 10^3/uL (1.5-4.5); LYMPH % 29.8 % (24.0-44.0); MEAN CORPUSCULAR HEMOGLOBIN 37.6 pg (27.0-33.0); MEAN CORPUSCULAR HGB CONC 35.2 g/dl (32.0-36.5); MEAN CORPUSCULAR VOLUME 107.1 fl (80.0-96.0); MONO # 0.9 10^3/uL (0.0-0.8); MONO % 16.1 % (0.0-5.0); NEUTROPHILS # 2.6 10^3/uL (1.8-7.7); NEUTROPHILS % 48.9 % (36.0-66.0); PLATELET COUNT, AUTOMATED 189 10^3/uL (150-450); RED BLOOD COUNT 2.55 10^6/uL (4.00-5.40); RED CELL DISTRIBUTION WIDTH 14.3 % (11.5-14.5); WHITE BLOOD COUNT 5.3 10^3/uL (4.0-10.0)
[2018-05-20 07:13] LABS: INR 1.41; PROTHROMBIN TIME 17.5 SECONDS (12.1-14.4)
[2018-05-20 07:14] LABS: PARTIAL THROMBOPLASTIN TIME 38.7 SECONDS (25.4-37.6)
[2018-05-20 07:24] LABS: LACTIC ACID SEPSIS PROTOCOL 1.7 MMOL/L (0.4-2.0)
[2018-05-20 07:29] LABS: ALBUMIN 2.4 GM/DL (3.2-5.2); ALBUMIN/GLOBULIN RATIO 0.55 (1.00-1.93); ALKALINE PHOSPHATASE 97 U/L (45-117); ALT/SGPT 26 U/L (12-78); AST/SGOT 83 U/L (7-37); BILIRUBIN,TOTAL 1.6 MG/DL (0.2-1.0); C REACTIVE PROTEIN QUANTITATIV 1.25 MG/DL (0.00-0.30); TOTAL PROTEIN 6.8 GM/DL (6.4-8.2)
[2018-05-20 07:32] LABS: ERYTHROCYTE SEDIMENTATION RATE 63 mm/hr (0-20)
[2018-05-20] MEDS ORDERED: ISOVUE-370 76% 100ML VIAL (Q9967) As Ordered (07:37)
[2018-05-20] MEDS: MAGNESIUM OXIDE 400 MG TAB (MAG-OX) PO ×2 (08:19→20:12)
[2018-05-20] MEDS: MULTIVITAMINS/MINERALS THERAP 1 TAB PO (08:19)
[2018-05-20] MEDS: hydrOXYzine 25 MG TAB PO ×4 (08:19→20:12)
[2018-05-20] MEDS: FLUCONAZOLE 100 MG TAB PO (08:19)
[2018-05-20] MEDS: POTASSIUM CHLORIDE 10 MEQ SR TABLET PO ×2 (08:19→22:00)
[2018-05-20] MEDS: FOLIC ACID 1 MG TAB PO (08:19)
[2018-05-20] MEDS: THIAMINE 100 MG TAB PO (08:19)
[2018-05-20] MEDS: LACTOBACILLUS ACIDOPHILUS CAP (BACID) PO ×2 (08:20→17:45)
[2018-05-20] MEDS: SODIUM CHLORIDE 1 GM TAB PO ×3 (08:25→17:45)
[2018-05-20] MEDS: MIDODRINE 2.5 MG TAB PO ×3 (08:25→16:21)
[2018-05-20] MEDS: ACETAMINOPHEN TAB 650MG DOSE (2X325MG) PO ×2 (08:29→20:19)
[2018-05-20 10:21] LABS: ANION GAP 8 MEQ/L (8-16); BLOOD UREA NITROGEN 8 MG/DL (7-18); CALCIUM LEVEL 8.1 MG/DL (8.5-10.1); CARBON DIOXIDE LEVEL 28 MEQ/L (21-32); CHLORIDE LEVEL 99 MEQ/L (98-107); CREATININE FOR GFR 0.71 MG/DL (0.55-1.30); GLOMERULAR FILTRATION RATE > 60.0 (>58); GLUCOSE, FASTING 128 MG/DL (70-100); POTASSIUM SERUM 3.7 MEQ/L (3.5-5.1); SODIUM LEVEL 135 MEQ/L (136-145)
[2018-05-20] MEDS: GASTROGRAFIN SOLUTION 30ML PO ×4 (11:12→13:04)
[2018-05-20 14:22] LABS: LACTIC ACID SEPSIS PROTOCOL 2.2 MMOL/L (0.4-2.0)
[2018-05-20 16:15] LABS: ANION GAP 7 MEQ/L (8-16); BLOOD UREA NITROGEN 8 MG/DL (7-18); CALCIUM LEVEL 7.7 MG/DL (8.5-10.1); CARBON DIOXIDE LEVEL 28 MEQ/L (21-32); CHLORIDE LEVEL 100 MEQ/L (98-107); CREATININE FOR GFR 0.82 MG/DL (0.55-1.30); GLOMERULAR FILTRATION RATE > 60.0 (>58); GLUCOSE, FASTING 122 MG/DL (70-100); POTASSIUM SERUM 3.7 MEQ/L (3.5-5.1); SODIUM LEVEL 135 MEQ/L (136-145)
[2018-05-20] MEDS: CETIRIZINE (ZyrTEC) 10 MG TAB PO (20:12)
[2018-05-20 22:23] LABS: ANION GAP 9 MEQ/L (8-16); BLOOD UREA NITROGEN 8 MG/DL (7-18); CALCIUM LEVEL 7.6 MG/DL (8.5-10.1); CARBON DIOXIDE LEVEL 27 MEQ/L (21-32); CHLORIDE LEVEL 98 MEQ/L (98-107); CREATININE FOR GFR 0.77 MG/DL (0.55-1.30); GLOMERULAR FILTRATION RATE > 60.0 (>58); GLUCOSE, FASTING 124 MG/DL (70-100); SODIUM LEVEL 134 MEQ/L (136-145)
[2018-05-20 22:30] LABS: MAGNESIUM LEVEL 1.6 MG/DL (1.8-2.4)
[2018-05-20] MEDS: MAG SULF 1GM/100ML (MAG RUN) 1 GM in APPROPRIATE DILUENT 1 EA IV (23:17)
[2018-05-21] MEDS: FUROSEMIDE 20 MG/2 ML VIAL (J1940) IV ×5 (00:31→23:43)
[2018-05-21] MEDS: VANCOMYCIN HCL 750 MG, VIAL MATE ADAPTER 1 EACH in D5W 250 ML IV ×2 (03:56→12:59)
[2018-05-21 04:18] LABS: KETONE, URINE AUTO RFX NEGATIVE (NEGATIVE); LEUKOCYTE ESTERASE UR AUTO RFX NEGATIVE (NEGATIVE); NITRITE, URINE AUTO RFX NEGATIVE (NEGATIVE); RBC, URINE AUTO RFX 2 /HPF (0-3); SPECIFIC GRAVITY UR AUTO RFX 1.004 (1.002-1.035); SQUAM EPITHELIAL CELL UR AURFX 1 /HPF (0-6); WBC, URINE AUTO RFX 0 /HPF (0-3)
[2018-05-21 05:17] LABS: ALBUMIN/GLOBULIN RATIO 0.45 (1.00-1.93); ALKALINE PHOSPHATASE 114 U/L (45-117); ALT/SGPT 30 U/L (12-78); ANION GAP 6 MEQ/L (8-16); AST/SGOT 86 U/L (7-37); BILIRUBIN,DIRECT 0.8 MG/DL (0.0-0.2); BILIRUBIN,TOTAL 1.2 MG/DL (0.2-1.0); BLOOD UREA NITROGEN 7 MG/DL (7-18); CALCIUM LEVEL 7.8 MG/DL (8.5-10.1); CARBON DIOXIDE LEVEL 28 MEQ/L (21-32); CHLORIDE LEVEL 99 MEQ/L (98-107); CREATININE FOR GFR 0.74 MG/DL (0.55-1.30); GLOMERULAR FILTRATION RATE > 60.0 (>58); GLUCOSE, FASTING 135 MG/DL (70-100); MAGNESIUM LEVEL 2.1 MG/DL (1.8-2.4); POTASSIUM SERUM 4.2 MEQ/L (3.5-5.1); SODIUM LEVEL 133 MEQ/L (136-145); TOTAL PROTEIN 6.4 GM/DL (6.4-8.2)
[2018-05-21] MEDS: SLF 3 ML SYR IV ×3 (06:01→23:43)
[2018-05-21] MEDS: MEROPENEM INJ 1 GM in APPROPRIATE DILUENT 1 EA IV ×2 (06:02→15:13)
[2018-05-21] MEDS: hydrOXYzine 25 MG TAB PO ×4 (08:08→20:27)
[2018-05-21] MEDS: LACTOBACILLUS ACIDOPHILUS CAP (BACID) PO ×2 (08:08→18:02)
[2018-05-21] MEDS: FLUCONAZOLE 100 MG TAB PO (08:08)
[2018-05-21] MEDS: MIDODRINE 2.5 MG TAB PO ×3 (08:08→15:13)
[2018-05-21] MEDS: THIAMINE 100 MG TAB PO (08:08)
[2018-05-21] MEDS: MAGNESIUM OXIDE 400 MG TAB (MAG-OX) PO ×2 (08:08→20:27)
[2018-05-21] MEDS: MULTIVITAMINS/MINERALS THERAP 1 TAB PO (08:08)
[2018-05-21] MEDS: FOLIC ACID 1 MG TAB PO (08:08)
[2018-05-21 08:40] LABS: ANION GAP 7 MEQ/L (8-16); BLOOD UREA NITROGEN 6 MG/DL (7-18); CALCIUM LEVEL 8.3 MG/DL (8.5-10.1); CARBON DIOXIDE LEVEL 29 MEQ/L (21-32); CHLORIDE LEVEL 99 MEQ/L (98-107); CREATININE FOR GFR 0.71 MG/DL (0.55-1.30); GLOMERULAR FILTRATION RATE > 60.0 (>58); GLUCOSE, FASTING 95 MG/DL (70-100); SODIUM LEVEL 135 MEQ/L (136-145)
[2018-05-21 08:44] LABS: LACTIC ACID SEPSIS PROTOCOL 1.5 MMOL/L (0.4-2.0)
[2018-05-21] MEDS ORDERED: LIDOCAINE 1% MDV 20ML VIAL As Ordered (10:29)
[2018-05-21 12:22] LABS: BF MONONUCLEAR CELL % 96.4 % (0-0); BF POLYMORPHONUCLEAR CELL % 3.6 % (0-0); RBC BODY FLUID < 2 10^3/uL (<2); WBC BODY FLUID 192 /uL (0-10)
[2018-05-21 12:23] LABS: APPEARANCE, BODY FLUID HAZY (CLEAR); BF DIFF IF INDICATED? YES (NO); PERITONEAL FL COLOR PALE YELLOW (COLORLESS); SOURCE, BODY FLUID PERITONEAL
[2018-05-21] MEDS: ACETAMINOPHEN TAB 650MG DOSE (2X325MG) PO (12:58)
[2018-05-21 16:18] LABS: ANION GAP 8 MEQ/L (8-16); BLOOD UREA NITROGEN 8 MG/DL (7-18); CALCIUM LEVEL 7.9 MG/DL (8.5-10.1); CARBON DIOXIDE LEVEL 28 MEQ/L (21-32); CHLORIDE LEVEL 98 MEQ/L (98-107); CREATININE FOR GFR 0.74 MG/DL (0.55-1.30); GLOMERULAR FILTRATION RATE > 60.0 (>58); GLUCOSE, FASTING 108 MG/DL (70-100); POTASSIUM SERUM 3.8 MEQ/L (3.5-5.1); SODIUM LEVEL 134 MEQ/L (136-145)
[2018-05-21 16:35] LABS: GAMMA GLUTAMYLTRANSPEPTIDASE 113 U/L (5-55)
[2018-05-21 16:39] LABS: LDH LACTATE DEHYDROGENASE 231 U/L (84-246)
[2018-05-21] MEDS: CETIRIZINE (ZyrTEC) 10 MG TAB PO (20:27)
[2018-05-22] MEDS: FUROSEMIDE 20 MG/2 ML VIAL (J1940) IV ×2 (06:00→12:15)
[2018-05-22 06:36] LABS: ANION GAP 7 MEQ/L (8-16); BLOOD UREA NITROGEN 8 MG/DL (7-18); CALCIUM LEVEL 8.1 MG/DL (8.5-10.1); CARBON DIOXIDE LEVEL 29 MEQ/L (21-32); CHLORIDE LEVEL 98 MEQ/L (98-107); GLOMERULAR FILTRATION RATE > 60.0 (>58); GLUCOSE, FASTING 108 MG/DL (70-100); SODIUM LEVEL 134 MEQ/L (136-145)
[2018-05-22 06:40] LABS: ALBUMIN/GLOBULIN RATIO 0.47 (1.00-1.93); ALKALINE PHOSPHATASE 101 U/L (45-117); ALT/SGPT 26 U/L (12-78); AST/SGOT 71 U/L (7-37); BILIRUBIN,DIRECT 0.8 MG/DL (0.0-0.2); BILIRUBIN,TOTAL 1.3 MG/DL (0.2-1.0); TOTAL PROTEIN 6.3 GM/DL (6.4-8.2)
[2018-05-22] MEDS: SLF 3 ML SYR IV ×3 (06:46→21:17)
[2018-05-22 08:35] LABS: ALPHA FETOPROTEIN TUMOR QUANT 4.4 NG/ML (<8.1)
[2018-05-22] MEDS: MAGNESIUM OXIDE 400 MG TAB (MAG-OX) PO ×2 (09:08→21:17)
[2018-05-22] MEDS: MULTIVITAMINS/MINERALS THERAP 1 TAB PO (09:09)
[2018-05-22] MEDS: THIAMINE 100 MG TAB PO (09:09)
[2018-05-22] MEDS: FOLIC ACID 1 MG TAB PO (09:09)
[2018-05-22] MEDS: LACTOBACILLUS ACIDOPHILUS CAP (BACID) PO ×2 (09:09→17:21)
[2018-05-22] MEDS: hydrOXYzine 25 MG TAB PO ×4 (09:09→21:16)
[2018-05-22] MEDS: MIDODRINE 2.5 MG TAB PO ×3 (09:09→17:21)
[2018-05-22] MEDS: FUROSEMIDE 40 MG TAB PO (17:21)
[2018-05-22] MEDS: ACETAMINOPHEN TAB 650MG DOSE (2X325MG) PO (17:21)
[2018-05-22] MEDS: CETIRIZINE (ZyrTEC) 10 MG TAB PO (21:16)
[2018-05-23] MEDS: SLF 3 ML SYR IV ×3 (05:27→21:34)
[2018-05-23 06:40] LABS: ALBUMIN/GLOBULIN RATIO 0.43 (1.00-1.93); ALKALINE PHOSPHATASE 108 U/L (45-117); ALT/SGPT 25 U/L (12-78); ANION GAP 7 MEQ/L (8-16); AST/SGOT 69 U/L (7-37); BILIRUBIN,DIRECT 0.8 MG/DL (0.0-0.2); BILIRUBIN,TOTAL 1.3 MG/DL (0.2-1.0); BLOOD UREA NITROGEN 8 MG/DL (7-18); CARBON DIOXIDE LEVEL 28 MEQ/L (21-32); CHLORIDE LEVEL 98 MEQ/L (98-107); CREATININE FOR GFR 0.73 MG/DL (0.55-1.30); GLOMERULAR FILTRATION RATE > 60.0 (>58); GLUCOSE, FASTING 101 MG/DL (70-100); POTASSIUM SERUM 3.8 MEQ/L (3.5-5.1); SODIUM LEVEL 133 MEQ/L (136-145); TOTAL PROTEIN 6.7 GM/DL (6.4-8.2)
[2018-05-23 08:07] LABS: ALPHA 1 ANTITRYPSIN 176 mg/dL (90-200)
[2018-05-23] MEDS ORDERED: HYDROCORTISONE 2.5% 20GM OINTMENT TOP (08:15)
[2018-05-23] MEDS: LACTOBACILLUS ACIDOPHILUS CAP (BACID) PO ×2 (08:42→17:09)
[2018-05-23] MEDS: THIAMINE 100 MG TAB PO (08:42)
[2018-05-23] MEDS: hydrOXYzine 25 MG TAB PO ×4 (08:42→21:34)
[2018-05-23] MEDS: MAGNESIUM OXIDE 400 MG TAB (MAG-OX) PO ×2 (08:42→21:34)
[2018-05-23] MEDS: MULTIVITAMINS/MINERALS THERAP 1 TAB PO (08:42)
[2018-05-23] MEDS: FOLIC ACID 1 MG TAB PO (08:43)
[2018-05-23] MEDS: ACETAMINOPHEN TAB 650MG DOSE (2X325MG) PO (09:06)
[2018-05-23 10:02] LABS: HEPATITIS A ANTIBODY IGM NEGATIVE (NEGATIVE)
[2018-05-23 10:07] LABS: HIV 1&2 SCREEN CENTAUR NEGATIVE (NEGATIVE)
[2018-05-23] MEDS: KETOCONAZOLE 2% CREAM TOP (13:34)
[2018-05-23 14:10] LABS: CERULOPLASMIN 18.7 mg/dL (19.0-39.0)
[2018-05-23 14:29] LABS: POTASSIUM RANDOM URINE 56.3 MEQ/L; SODIUM,RANDOM URINE < 10 MEQ/L
[2018-05-23] MEDS: SPIRONOLACTONE 50 MG TAB PO (17:09)
[2018-05-23] MEDS: CETIRIZINE (ZyrTEC) 10 MG TAB PO (21:34)
[2018-05-24] MEDS: SLF 3 ML SYR IV ×4 (05:37→20:53)
[2018-05-24 07:40] LABS: ALBUMIN/GLOBULIN RATIO 0.44 (1.00-1.93); ALKALINE PHOSPHATASE 95 U/L (45-117); ALT/SGPT 24 U/L (12-78); ANION GAP 7 MEQ/L (8-16); AST/SGOT 71 U/L (7-37); BILIRUBIN,DIRECT 0.9 MG/DL (0.0-0.2); BILIRUBIN,TOTAL 1.7 MG/DL (0.2-1.0); BLOOD UREA NITROGEN 7 MG/DL (7-18); CARBON DIOXIDE LEVEL 27 MEQ/L (21-32); CHLORIDE LEVEL 99 MEQ/L (98-107); CREATININE FOR GFR 0.68 MG/DL (0.55-1.30); GLOMERULAR FILTRATION RATE > 60.0 (>58); GLUCOSE, FASTING 98 MG/DL (70-100); POTASSIUM SERUM 3.6 MEQ/L (3.5-5.1); SODIUM LEVEL 133 MEQ/L (136-145); TOTAL PROTEIN 6.5 GM/DL (6.4-8.2)
[2018-05-24] MEDS: LACTOBACILLUS ACIDOPHILUS CAP (BACID) PO ×2 (08:56→17:05)
[2018-05-24] MEDS: FOLIC ACID 1 MG TAB PO (08:56)
[2018-05-24] MEDS: hydrOXYzine 25 MG TAB PO ×4 (08:56→20:48)
[2018-05-24] MEDS: MAGNESIUM OXIDE 400 MG TAB (MAG-OX) PO ×2 (08:56→20:48)
[2018-05-24] MEDS: THIAMINE 100 MG TAB PO (08:56)
[2018-05-24] MEDS: MULTIVITAMINS/MINERALS THERAP 1 TAB PO (08:56)
[2018-05-24] MEDS: SPIRONOLACTONE 50 MG TAB PO (08:56)
[2018-05-24 12:33] LABS: SODIUM,RANDOM URINE < 10 MEQ/L
[2018-05-24] MEDS: FUROSEMIDE 20 MG TAB PO (12:56)
[2018-05-24 14:13] LABS: ANTI DOUBLE STRAND-DNA AB 2 IU/mL (0-9); ANTI-MITOCHONDRIAL ANTIBODY 2.6 Units (0.0-20.0); ANTINUCLEAR ANTIBODIES DIRECT Positive (Negative); QuantiFERON-TB Gold Plus Negative (Negative); RNP ANTIBODIES <0.2 AI (0.0-0.9); SJOGREN'S ANTI SS-A <0.2 AI (0.0-0.9); SJOGREN'S ANTI SS-B 1.8 AI (0.0-0.9); SMITH ANTIBODIES <0.2 AI (0.0-0.9)
[2018-05-24 14:13] LABS: ANTI-SMOOTH MUSCLE ANTIBODY 21 Units (0-19)
[2018-05-24] MEDS: ACETAMINOPHEN TAB 650MG DOSE (2X325MG) PO (17:06)
[2018-05-24 17:40] LABS: HEPATITIS BE ANTIGEN Negative (Negative)
[2018-05-24 17:40] LABS: HEPATITIS A IgG TOTAL Positive (Negative); LIVER-KIDNEY MICROSOMAL ABY 1.3 Units (0.0-20.0)
[2018-05-24] MEDS: CETIRIZINE (ZyrTEC) 10 MG TAB PO (20:49)
[2018-05-25 05:10] LABS: SODIUM,RANDOM URINE < 10 MEQ/L
[2018-05-25 06:58] LABS: ALBUMIN/GLOBULIN RATIO 0.44 (1.00-1.93); ALKALINE PHOSPHATASE 92 U/L (45-117); ALT/SGPT 23 U/L (12-78); ANION GAP 9 MEQ/L (8-16); AST/SGOT 70 U/L (7-37); BILIRUBIN,DIRECT 0.7 MG/DL (0.0-0.2); BILIRUBIN,TOTAL 1.3 MG/DL (0.2-1.0); BLOOD UREA NITROGEN 7 MG/DL (7-18); CALCIUM LEVEL 7.8 MG/DL (8.5-10.1); CARBON DIOXIDE LEVEL 28 MEQ/L (21-32); CHLORIDE LEVEL 99 MEQ/L (98-107); CREATININE FOR GFR 0.72 MG/DL (0.55-1.30); GLOMERULAR FILTRATION RATE > 60.0 (>58); GLUCOSE, FASTING 94 MG/DL (70-100); POTASSIUM SERUM 3.4 MEQ/L (3.5-5.1); SODIUM LEVEL 136 MEQ/L (136-145); TOTAL PROTEIN 6.5 GM/DL (6.4-8.2)
[2018-05-25] MEDS: LACTOBACILLUS ACIDOPHILUS CAP (BACID) PO (08:07)
[2018-05-25] MEDS: MAGNESIUM OXIDE 400 MG TAB (MAG-OX) PO (08:07)
[2018-05-25] MEDS: THIAMINE 100 MG TAB PO (08:08)
[2018-05-25] MEDS: hydrOXYzine 25 MG TAB PO (08:08)
[2018-05-25] MEDS: FUROSEMIDE 20 MG TAB PO (08:08)
[2018-05-25] MEDS: SPIRONOLACTONE 50 MG TAB PO (08:08)
[2018-05-25] MEDS: FOLIC ACID 1 MG TAB PO (08:08)
[2018-05-25] MEDS: MULTIVITAMINS/MINERALS THERAP 1 TAB PO (08:08)
[2018-05-28 12:12] LABS: HEPATITIS B SURFACE ANTIBODY NEGATIVE (POSITIVE)
== END 2018-05-25 11:50 | disposition home or self-care (01) | DRG 280 ==
LOC: M MS4PR 05-23 09:00 → M MSPAV 05-24 15:10 → M ED 13:37 → M MSPAV 05-15 11:52 → M ED INP 17:35 → M PCU 20:29
PROC: 0W9G3ZZ Drainage of Peritoneal Cavity, Percutaneous Approach (ICD-10-PCS; principal; 2018-05-10)
PROC: 30233J1 Transfusion of Nonautologous Serum Albumin into Peripheral Vein, Percutaneous Approach (ICD-10-PCS; 2018-05-12)
DX: K70.31 Alcoholic cirrhosis of liver with ascites (principal); J18.9 Pneumonia, unspecified organism; K76.6 Portal hypertension; E46 Unspecified protein-calorie malnutrition; E87.1 Hypo-osmolality and hyponatremia; E87.6 Hypokalemia; T50.2X5A Adverse effect of carbonic-anhydrase inhibitors, benzothiadiazides and other diuretics, initial encounter; L85.3 Xerosis cutis; L21.8 Other seborrheic dermatitis; J45.909 Unspecified asthma, uncomplicated; Z79.899 Other long term (current) drug therapy; Z88.0 Allergy status to penicillin; Z91.030 Bee allergy status; Z88.8 Allergy status to other drugs, medicaments and biological substances; Z68.26 Body mass index [BMI] 26.0-26.9, adult

== ENCOUNTER → 2018-06-08 | Outpatient (CLI) | payer OTHER ==
[2018-06-08 19:15] LABS: ANION GAP 7 MEQ/L (8-16); BLOOD UREA NITROGEN 6 MG/DL (7-18); CALCIUM LEVEL 8.6 MG/DL (8.5-10.1); CARBON DIOXIDE LEVEL 29 MEQ/L (21-32); CHLORIDE LEVEL 96 MEQ/L (98-107); CREATININE FOR GFR 0.87 MG/DL (0.55-1.30); GLOMERULAR FILTRATION RATE > 60.0 (>58); GLUCOSE, FASTING 147 MG/DL (70-100); IRON (FE) 96 UG/DL (50-170); PERCENT SATURATION 54.2 % (13.2-45.0); POTASSIUM SERUM 3.3 MEQ/L (3.5-5.1); SODIUM LEVEL 132 MEQ/L (136-145); TOTAL IRON BINDING CAPACITY 177 UG/DL (250-450)
[2018-06-08 19:40] LABS: UREA NITROGEN RANDOM URINE 137 MG/DL
[2018-06-08 19:40] LABS: CREATININE,RANDOM URINE 34.9 MG/DL; SODIUM,RANDOM URINE 100 MEQ/L
== END ==
LOC: M ADAMS 14:12
DX: K70.31 Alcoholic cirrhosis of liver with ascites (principal)
CPT/HCPCS: 83550

== ENCOUNTER 2018-06-12 12:25 | Day surgery (SDC) | payer OTHER ==
[~2018-06-12 12:25] MED LIST: NS 1,000 ML IV
[2018-06-12] MEDS ORDERED: LIDOCAINE 2% INJ 100 MG/5 ML SDV (FOR ANES.) As Ordered (12:59)
[2018-06-12] MEDS ORDERED: PROPOFOL 200 MG/20 ML VIAL As Ordered ×2 (12:59→13:38)
[2018-06-12] MEDS ORDERED: fentaNYL 100 MCG/2 ML INJECTION (J3010) As Ordered (13:00)
== END 2018-06-12 14:25 | disposition home or self-care (01) ==
LOC: M OPP 14:25
DX: K74.60 Unspecified cirrhosis of liver (principal); I85.10 Secondary esophageal varices without bleeding; K25.9 Gastric ulcer, unspecified as acute or chronic, without hemorrhage or perforation; K29.70 Gastritis, unspecified, without bleeding
CPT/HCPCS: 43239

== ENCOUNTER → 2018-11-06 | Outpatient (REF) | payer OTHER ==
[~2018-11-06] MED LIST changes: +ALDA50TA2 PO; +AZEL1SPR3; +CENT1TAB PO; +DISU250T; +FOLI1TAB11 PO; +FURO20TA2 PO; +HYDR25OIN TOP; +KETO2CR TOP; -NS 1,000 ML IV; +POTA10TA14 PO; +PROAAER10 INH; +THIA100TA PO
[2018-11-06 17:11] LABS: BLOOD UREA NITROGEN 12 MG/DL (7-18); CALCIUM LEVEL 8.9 MG/DL (8.5-10.1); CARBON DIOXIDE LEVEL 29 MEQ/L (21-32); CHLORIDE LEVEL 101 MEQ/L (98-107); CREATININE FOR GFR 0.88 MG/DL (0.55-1.30); GLOMERULAR FILTRATION RATE > 60.0 (>58); GLUCOSE, FASTING 112 MG/DL (70-100); MAGNESIUM LEVEL 1.9 MG/DL (1.8-2.4); PHOSPHORUS LEVEL 3.6 MG/DL (2.5-4.9); SODIUM LEVEL 136 MEQ/L (136-145)
[2018-11-06 17:20] LABS: BASO % 0.6 % (0.0-1.0); EOS # 0.3 10^3/uL (0.0-0.50); EOS % 4.1 % (0.0-3.0); HEMATOCRIT 35.5 % (36.0-47.0); HEMOGLOBIN 11.6 g/dl (12.0-15.5); LYMPH % 30.2 % (24.0-44.0); MEAN CORPUSCULAR HEMOGLOBIN 29.8 pg (27.0-33.0); MEAN CORPUSCULAR HGB CONC 32.7 g/dl (32.0-36.5); MEAN CORPUSCULAR VOLUME 91.3 fl (80.0-96.0); MONO % 14.5 % (0.0-5.0); NEUTROPHILS # 3.3 10^3/uL (1.8-7.7); NEUTROPHILS % 50.3 % (36.0-66.0); PLATELET COUNT, AUTOMATED 206 10^3/uL (150-450); RED BLOOD COUNT 3.89 10^6/uL (4.00-5.40); WHITE BLOOD COUNT 6.5 10^3/uL (4.0-10.0)
== END ==
LOC: M LABDRWAD 15:52
PROVIDERS: ATTEND Internal Medicine Gastroenterology
DX: K70.31 Alcoholic cirrhosis of liver with ascites (principal); I85.00 Esophageal varices without bleeding; K25.9 Gastric ulcer, unspecified as acute or chronic, without hemorrhage or perforation

== ENCOUNTER → 2018-11-29 | Outpatient (REF) | payer OTHER ==
[~2018-11-29] MED LIST changes: +FOLI400T PO; +MULTCAP PO; +PANT40TA3 PO; +PROP10TA56 PO
[2018-11-29 19:24] LABS: ALBUMIN 3.6 GM/DL (3.2-5.2); ALT/SGPT 24 U/L (12-78); BILIRUBIN,TOTAL 0.4 MG/DL (0.2-1.0); BLOOD UREA NITROGEN 6 MG/DL (7-18); CALCIUM LEVEL 8.1 MG/DL (8.5-10.1); CARBON DIOXIDE LEVEL 29 MEQ/L (21-32); CHLORIDE LEVEL 103 MEQ/L (98-107); CPK CREATINE PHOSPHOKINASE 101 U/L (26-192); CREATININE FOR GFR 0.81 MG/DL (0.55-1.30); FREE T4 1.24 NG/DL (0.76-1.46); GLOMERULAR FILTRATION RATE > 60.0 (>58); GLUCOSE, FASTING 196 MG/DL (70-100); MAGNESIUM LEVEL 2.1 MG/DL (1.8-2.4); POTASSIUM SERUM 3.8 MEQ/L (3.5-5.1); RHEUMATOID FACTOR QUANT 20.1 IU/ML (<15.0); SODIUM LEVEL 138 MEQ/L (136-145); TOTAL PROTEIN 8.5 GM/DL (6.4-8.2); VITAMIN B12 LEVEL 481 PG/ML
[2018-12-02 00:07] LABS: ANA (HEP2) Positive (.)
[2018-12-04 00:06] LABS: Lyme Disease IgG Ab 18 kDa Ban Absent (.); Lyme Disease IgG Ab 23 kDa Ban Absent (.); Lyme Disease IgG Ab 28 kDa Ban Absent (.); Lyme Disease IgG Ab 30 kDa Ban Absent (.); Lyme Disease IgG Ab 39 kDa Ban Absent (.); Lyme Disease IgG Ab 41 kDa Ban Absent (.); Lyme Disease IgG Ab 45 kDa Ban Absent (.); Lyme Disease IgG Ab 58 kDa Ban Absent (.); Lyme Disease IgG Ab 66 kDa Ban Absent (.); Lyme Disease IgG Ab 93 kDa Ban Present (.); Lyme Disease IgG West Blot Int Negative (.); Lyme Disease IgG/IgM Antibodie <0.91 ISR (0.00-0.90); Lyme Disease IgM Ab 23 kDa Ban Absent (.); Lyme Disease IgM Ab 39 kDa Ban Absent (.); Lyme Disease IgM Ab 41 kDa Ban Present (.); Lyme Disease IgM Ab Quantitati 1.02 index (0.00-0.79); Lyme Disease IgM West Blot Int Negative (.)
== END ==
LOC: M SFHCADAM 11:21
PROVIDERS: ATTEND Physician Assistant
DX: M54.9 Dorsalgia, unspecified (principal); R76.8 Other specified abnormal immunological findings in serum; K74.60 Unspecified cirrhosis of liver

== ENCOUNTER 2019-06-05 03:46 | Emergency (ER) | payer OTHER ==
[~2019-06-05] VITALS: Ht 172.7 cm; Wt 90.9 kg
[2019-06-05 04:07] LABS: BASO % 0.4 % (0.0-1.0); EOS # 0.1 10^3/uL (0.0-0.5); EOS % 2.3 % (0.0-3.0); HEMATOCRIT 34.1 % (36.0-47.0); HEMOGLOBIN 10.8 g/dl (12.0-15.5); LYMPH # 0.7 10^3/uL (1.5-5.0); LYMPH % 12.5 % (24.0-44.0); MEAN CORPUSCULAR HEMOGLOBIN 31.6 pg (27.0-33.0); MEAN CORPUSCULAR HGB CONC 31.7 g/dl (32.0-36.5); MEAN CORPUSCULAR VOLUME 99.7 fl (80.0-96.0); MONO # 0.6 10^3/uL (0.0-0.8); MONO % 10.8 % (0.0-5.0); NEUTROPHILS # 3.8 10^3/uL (1.5-8.5); NEUTROPHILS % 73.4 % (36.0-66.0); RED BLOOD COUNT 3.42 10^6/uL (4.00-5.40); WHITE BLOOD COUNT 5.2 10^3/uL (4.0-10.0)
[2019-06-05] MEDS ORDERED: KETOROLAC 30 MG/ML VIAL (J1885) IV ONE (04:30)
[2019-06-05] MEDS ORDERED: ONDANSETRON 4MG/2ML VIAL (J2405) IV ONE (04:30)
[2019-06-05] MEDS ORDERED: NS 1,000 ML IV ONE (04:30)
[2019-06-05 04:36] LABS: PLATELET COUNT, AUTOMATED 79 10^3/uL (150-450)
[2019-06-05 04:50] LABS: ALT/SGPT 34 U/L (12-78); BILIRUBIN,DIRECT 0.8 MG/DL (0.0-0.2); BILIRUBIN,TOTAL 1.7 MG/DL (0.2-1.0); CK-MB VALUE MASS < 1.0 NG/ML (<3.6); CPK CREATINE PHOSPHOKINASE 115 U/L (26-192); LIPASE 538 U/L (73-393); MB/CK RELATIVE INDEX 0.87 (< OR =4); TROPONIN I < 0.02 NG/ML (< 0.10)
[2019-06-05] MEDS ORDERED: ONDA4TAB6 PO (05:27)
[2019-06-05 05:40] LABS: ETHYL ALCOHOL (ETHANOL) 0.015 % (0.000-0.010)
[2019-06-05 05:43] VITALS: BP 108/64
--- NOTE | 2019-06-05 05:49 | ECGEPIP ---
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
== END 2019-06-05 06:37 | disposition home or self-care (01) ==
LOC: EDSEX 03:46 → M ED 03:46 → EDBD 03:46 → M ED 06:37
DX: K85.20 Alcohol induced acute pancreatitis without necrosis or infection (principal); I44.0 Atrioventricular block, first degree; G89.29 Other chronic pain; M54.5 Low back pain; F10.10 Alcohol abuse, uncomplicated; J30.89 Other allergic rhinitis; Z79.899 Other long term (current) drug therapy; Z88.0 Allergy status to penicillin; Z91.030 Bee allergy status
CPT/HCPCS: 80047; 80076; 82550; 82553; 83690; 85025; 85049; 85055; 93005; 93041; 96374; 96375; 99284; G0480; J1885; J2405

== ENCOUNTER → 2019-08-01 | Outpatient (CLI) | payer OTHER ==
[~2019-08-01] MED LIST changes: +ONDA4TAB6 PO
[2019-08-01 14:06] LABS: BASO % 0.5 % (0.0-1.0); EOS # 0.1 10^3/uL (0.0-0.5); EOS % 2.8 % (0.0-3.0); HEMATOCRIT 35.5 % (36.0-47.0); HEMOGLOBIN 10.8 g/dl (12.0-15.5); LYMPH # 0.9 10^3/uL (1.5-5.0); LYMPH % 39.4 % (24.0-44.0); MEAN CORPUSCULAR HEMOGLOBIN 30.1 pg (27.0-33.0); MEAN CORPUSCULAR HGB CONC 30.4 g/dl (32.0-36.5); MEAN CORPUSCULAR VOLUME 98.9 fl (80.0-96.0); MONO # 0.2 10^3/uL (0.0-0.8); NEUTROPHILS % 45.8 % (36.0-66.0); RED BLOOD COUNT 3.59 10^6/uL (4.00-5.40); WHITE BLOOD COUNT 2.2 10^3/uL (4.0-10.0)
[2019-08-01 14:36] LABS: ALBUMIN 2.9 GM/DL (3.2-5.2); ALT/SGPT 30 U/L (12-78); BILIRUBIN,DIRECT 0.4 MG/DL (0.0-0.2); BILIRUBIN,TOTAL 0.8 MG/DL (0.2-1.0); BLOOD UREA NITROGEN 6 MG/DL (7-18); CALCIUM LEVEL 7.7 MG/DL (8.5-10.1); CARBON DIOXIDE LEVEL 25 MEQ/L (21-32); CHLORIDE LEVEL 108 MEQ/L (98-107); CREATININE FOR GFR 0.58 MG/DL (0.55-1.30); GLOMERULAR FILTRATION RATE > 60.0 (>58); GLUCOSE, FASTING 83 MG/DL (70-100); PLATELET COUNT, AUTOMATED 50 10^3/uL (150-450); POTASSIUM SERUM 3.8 MEQ/L (3.5-5.1); SODIUM LEVEL 141 MEQ/L (136-145)
== END ==
LOC: M LAB 11:48
PROVIDERS: ATTEND Internal Medicine Gastroenterology
DX: K70.31 Alcoholic cirrhosis of liver with ascites (principal)

== ENCOUNTER → 2019-08-13 | Outpatient (CLI) | payer OTHER ==
--- NOTE | 2019-08-14 05:19 | REP ---
Clinical: Alcoholic cirrhosis. Technique: Real time morton scale ultrasound examination using curved array transducer. Findings: The liver demonstrates a subtle nodular contour with otherwise normal echotexture and no focal hepatic lesion identified. The main portal vein measures 12.5 mm diameter. Gallbladder demonstrates multiple gallstones without wall thickening or pericholecystic fluid. Common bile duct is normal and measures 7 mm diameter. The right kidney is unremarkable and without hydronephrosis measuring 12.0 x 4.4 x 6.1 cm. No ascites. Impression: Findings suggesting cirrhosis without focal hepatic lesion. Cholelithiasis. Electronically Signed by Emanuel Mckinney MD 08/14/2019 05:10 A
== END ==
LOC: M RAD 09:33
PROVIDERS: ATTEND Internal Medicine Gastroenterology
DX: K70.31 Alcoholic cirrhosis of liver with ascites (principal); K80.20 Calculus of gallbladder without cholecystitis without obstruction

== ENCOUNTER 2019-10-03 13:02 | Emergency (ER) | payer OTHER, SELFPAY ==
[~2019-10-03] VITALS: Ht 172.7 cm; Wt 84.3 kg
[2019-10-03] MEDS ORDERED: FOLI1TAB11 PO (13:13)
[2019-10-03 13:59] LABS: HEMATOCRIT 33.9 % (36.0-47.0); HEMOGLOBIN 11.1 g/dl (12.0-15.5); MEAN CORPUSCULAR HEMOGLOBIN 31.4 pg (27.0-33.0); MEAN CORPUSCULAR HGB CONC 32.7 g/dl (32.0-36.5); RED BLOOD COUNT 3.53 10^6/uL (4.00-5.40); WHITE BLOOD COUNT 4.3 10^3/uL (4.0-10.0)
[2019-10-03 14:02] LABS: PLATELET COUNT, AUTOMATED 64 10^3/uL (150-450)
--- NOTE | 2019-10-03 14:06 | REPVR ---
PROCEDURE INFORMATION: Exam: CT Head Without Contrast Exam date and time: 10/03/2019 1:55 PM Age: 49 years old Clinical indication: Pain; Headache; Additional info: Severe headache TECHNIQUE: Imaging protocol: Computed tomography of the head without contrast. Radiation optimization: All CT scans at this facility use at least one of these dose optimization techniques: automated exposure control; mA and/or kV adjustment per patient size (includes targeted exams where dose is matched to clinical indication); or iterative reconstruction. COMPARISON: No relevant prior studies available. FINDINGS: Brain: No acute intracranial hemorrhage, cerebral edema, or midline shift. Ventricles: No hydrocephalus. Bones/joints: No acute fracture. Sinuses: No acute sinusitis. Mastoid air cells: Visualized mastoid air cells are well aerated. Soft tissues: Unremarkable. IMPRESSION: No acute intracranial abnormality. Electronically signed by: Roderick Barber On 10/03/2019 14:06:05 PM
[2019-10-03 14:09] LABS: INR 1.26; PARTIAL THROMBOPLASTIN TIME 34.5 SECONDS (25.0-38.4); PROTHROMBIN TIME 15.6 SECONDS (11.8-14.0)
[2019-10-03 14:18] LABS: BLOOD UREA NITROGEN 6 MG/DL (7-18); CALCIUM LEVEL 8.2 MG/DL (8.5-10.1); CARBON DIOXIDE LEVEL 27 MEQ/L (21-32); CHLORIDE LEVEL 102 MEQ/L (98-107); CPK CREATINE PHOSPHOKINASE 132 U/L (26-192); CREATININE FOR GFR 0.66 MG/DL (0.55-1.30); GLOMERULAR FILTRATION RATE > 60.0 (>58); GLUCOSE, FASTING 100 MG/DL (70-100); POTASSIUM SERUM 3.9 MEQ/L (3.5-5.1); SODIUM LEVEL 135 MEQ/L (136-145)
[2019-10-03 14:53] LABS: ALBUMIN 3.3 GM/DL (3.2-5.2); ALT/SGPT 33 U/L (12-78); BILIRUBIN,DIRECT 0.5 MG/DL (0.0-0.2); BILIRUBIN,TOTAL 0.9 MG/DL (0.2-1.0); TOTAL PROTEIN 8.3 GM/DL (6.4-8.2)
[2019-10-03] MEDS ORDERED: METOCLOPRAMIDE INJ 10MG/2ML VIAL (J2765) IV ONE (15:00)
[2019-10-03] MEDS ORDERED: FIORICET TAB PO ONE (15:30)
[2019-10-03] MEDS ORDERED: FIOR1CAP PO (15:30)
[2019-10-03 15:41] VITALS: BP 112/59
== END 2019-10-03 15:50 | disposition home or self-care (01) ==
LOC: M ED 13:02
DX: R51 Headache (principal); D69.6 Thrombocytopenia, unspecified; K74.60 Unspecified cirrhosis of liver; J30.89 Other allergic rhinitis; Z79.899 Other long term (current) drug therapy; Z88.0 Allergy status to penicillin; Z91.030 Bee allergy status
CPT/HCPCS: 70450; 80048; 80076; 82550; 83735; 85027; 85049; 85055; 85610; 85730; 96374; 99284; J2765

== ENCOUNTER → 2019-10-08 | Outpatient (CLI) | payer MEDICAID, OTHER ==
[~2019-10-08] MED LIST changes: +FIOR1CAP PO
--- NOTE | 2019-10-08 17:51 | REP ---
HISTORY: Dyspnea. COMPARISON: None. FINDINGS: The superior mediastinal structures are midline. The cardiac silhouette is unremarkable in size, shape and position. The diaphragmatic surfaces of the lungs are regular and the costophrenic angles are clear. The pulmonary gómez are clear. The imaged osseous structures are intact. IMPRESSION: There is no acute cardiopulmonary disease. Electronically Signed by Paolo Batres DO 10/08/2019 05:58 P
== END ==
LOC: M ADAMS 17:05
PROVIDERS: ATTEND Physician Assistant
DX: R06.02 Shortness of breath (principal)

== ENCOUNTER → 2019-10-08 | Outpatient (REF) | payer MEDICAID, OTHER ==
[2019-10-09 10:54] LABS: HEPATITIS A ANTIBODY IGM NEGATIVE (NEGATIVE); HEPATITIS B CORE ANTIBODY IGM NEGATIVE (NEGATIVE); HEPATITIS B SURFACE ANTIGEN NEGATIVE (NEGATIVE); HEPATITIS C VIRUS ABY INDEX 0.1 INDEX (<0.8)
== END ==
LOC: M SFHCADAM 16:46
PROVIDERS: ATTEND Physician Assistant
DX: Z23 Encounter for immunization (principal)

== ENCOUNTER → 2020-08-15 | Outpatient (CLI) | payer OTHER ==
[~2020-08-15] MED LIST changes: +B-1100TA2 PO; +PANT40TA29 PO; -PANT40TA3 PO
== END ==
LOC: M LABSMTC 08:41
PROVIDERS: ATTEND Anesthesiology
DX: Z01.812 Encounter for preprocedural laboratory examination (principal); Z20.822 Contact with and (suspected) exposure to COVID-19

== ENCOUNTER → 2020-08-17 | Outpatient (CLI) | payer OTHER ==
--- NOTE | 2020-08-17 08:31 | REP ---
INDICATION: ESOPHAGEAL VARICIES, EVAL FOR HCC/LIVER MASS/ASCIT COMPARISON: 08/13/2019 TECHNIQUE: Real time B-mode morton scale ultrasound examination using curved array transducer. FINDINGS: Liver demonstrates subtle nodular contour with a subjectively shrunken right lobe consistent with underlying hepatocellular disease/cirrhosis. No focal hepatic lesion identified. Spleen is enlarged (splenic index: 1102) without focal splenic lesion identified. Pancreas is normal. Gallbladder demonstrates cholelithiasis without wall thickening or pericholecystic fluid. Common bile duct is dilated to 11 mm. The bilateral kidneys are normal in reniform shape without hydronephrosis or obvious abnormality. Right kidney measures 11.0 x 5.5 x 5.2 cm. Left kidney measures 13.0 x 5.5 x 6.1 cm. Abdominal aorta is incompletely evaluated due to interposed bowel gas. Moderate amount of perihepatic ascites noted. Tortuous vessels in the mid abdomen suggest portosystemic shunting related to portal hypertension. IMPRESSION: 1. Findings consistent with cirrhosis/hepatocellular disease and portal hypertension. No focal hepatic lesion identified. 2. Perihepatic ascites. 3. Cholelithiasis. <Electronically signed by Emanuel Mckinney > 08/17/20 0826
== END ==
LOC: M RAD 07:17
PROVIDERS: ATTEND Internal Medicine Gastroenterology
DX: K70.31 Alcoholic cirrhosis of liver with ascites (principal); I85.10 Secondary esophageal varices without bleeding; K80.20 Calculus of gallbladder without cholecystitis without obstruction

== ENCOUNTER → 2021-01-05 | Outpatient (REF) | payer OTHER ==
[~2021-01-05] MED LIST changes: -FOLI400T PO; +FOLI400T13 PO
[2021-01-05 18:41] LABS: BASO % 0.3 % (0.0-1.0); EOS # 0.1 10^3/uL (0.0-0.5); EOS % 2.3 % (0.0-3.0); HEMATOCRIT 24.8 % (36.0-47.0); HEMOGLOBIN 8.1 g/dl (12.0-15.5); LYMPH # 0.9 10^3/uL (1.5-5.0); LYMPH % 22.4 % (24.0-44.0); MEAN CORPUSCULAR HEMOGLOBIN 38.2 pg (27.0-33.0); MEAN CORPUSCULAR HGB CONC 32.7 g/dl (32.0-36.5); MONO # 0.9 10^3/uL (0.0-0.8); MONO % 22.2 % (2.0-8.0); NEUTROPHILS % 51.3 % (36.0-66.0); PLATELET COUNT, AUTOMATED 105 10^3/uL (150-450); RED BLOOD COUNT 2.12 10^6/uL (4.00-5.40)
[2021-01-05 19:09] LABS: ALT/SGPT 14 U/L (12-78); BILIRUBIN,TOTAL 5.5 MG/DL (0.2-1.0); BLOOD UREA NITROGEN 20 MG/DL (7-18); CALCIUM LEVEL 8.4 MG/DL (8.5-10.1); CARBON DIOXIDE LEVEL 29 MEQ/L (21-32); CHLORIDE LEVEL 95 MEQ/L (98-107); CREATININE FOR GFR 1.36 MG/DL (0.55-1.30); GLOMERULAR FILTRATION RATE 44.2 (>58); GLUCOSE, FASTING 102 MG/DL (70-100); POTASSIUM SERUM 4.1 MEQ/L (3.5-5.1); SODIUM LEVEL 129 MEQ/L (136-145); TOTAL PROTEIN 7.4 GM/DL (6.4-8.2)
[2021-01-05 19:13] LABS: PLATELET ESTIMATE DECREASED (NORMAL)
[2021-01-05 19:14] LABS: ANISOCYTOSIS 3+
[2021-01-05 19:17] LABS: TOTAL 25(OH) VITAMIN D 12.5 NG/ML (30.0-100.0); VITAMIN B12 LEVEL > 2000 PG/ML
[2021-01-05 19:18] LABS: FOLATE 4.4 NG/ML
== END ==
LOC: M SFHCADAM 11:33
PROVIDERS: ATTEND Physician Assistant
DX: K70.30 Alcoholic cirrhosis of liver without ascites (principal); M54.5 Low back pain; G89.29 Other chronic pain; R76.8 Other specified abnormal immunological findings in serum

== ENCOUNTER → 2021-01-05 | Outpatient (CLI) | payer OTHER ==
--- NOTE | 2021-01-05 13:41 | REP ---
INDICATION: LOW BACK PAIN, ALCOHOLIC CIRRHOSIS OF LIVER W/O ASCITES COMPARISON: None. TECHNIQUE: AP, lateral, bilateral oblique, and coned-down views of the lumbar spine. FINDINGS: Alignment and lordosis maintained. Vertebral bodies are intact. Disc spaces are relatively normal/age-appropriate. Lumbarization of S1 is suggested. No acute fracture/compression injury or subluxation. No obvious spondylolysis or spondylolisthesis.. Facet hypertrophy at L4 through S1 noted without further significant degenerative changes. IMPRESSION: Mild/moderate degenerative changes as noted above. <Electronically signed by Emanuel Mckinney > 01/05/21 0589
--- NOTE | 2021-01-05 13:42 | REP ---
INDICATION: LOW BACK PAIN, ALCOHOLIC CIRRHOSIS OF LIVER W/O ASCITES COMPARISON: None. TECHNIQUE: AP, lateral, and swimmers views. FINDINGS: Alignment and kyphosis is maintained. Vertebral bodies intact. No acute fracture / compression injury or subluxation. No degenerative changes. Paravertebral soft tissues are normal. IMPRESSION: Normal age-appropriate thoracic spine series. <Electronically signed by Emanuel Mckinney > 01/05/21 [id number]
== END ==
LOC: M ADAMS 12:11
PROVIDERS: ATTEND Physician Assistant
DX: M54.5 Low back pain (principal)

== ENCOUNTER → 2021-01-21 | Outpatient (CLI) | payer OTHER ==
--- NOTE | 2021-01-21 10:26 | REP ---
INDICATION: UNSPEC CIRRHOSIS OF LIVER. COMPARISON: Multiple the latest 08/17/2020 TECHNIQUE: Transabdominal ultrasound FINDINGS: Multiple ultrasonographic images of the liver show the hepatic parenchymal echo pattern to be diffusely increased with a coarsened echotexture and a nodular appearing surface. There is no intrahepatic ductal dilatation. The common bile duct measures 10 mm. Multiple ultrasonographic images of the gallbladder show abnormal echogenic foci within the gallbladder lumen some of which cast acoustic shadows. There is gallbladder wall thickening. The imaged portion of the pancreas is within normal limits. The spleen measures 15 x 15 x4.6 cm. No splenic or perisplenic abnormalities are noted. The right kidney measures 11.6 x 5.7 x 4.9 cm. The renal cortical echotexture is within normal limits. Corticomedullary differentiation is preserved. There is no hydronephrosis. There are no masses. The left kidney measures 13.1 x 4.4 x 6.3 cm. The renal cortical echotexture is within normal limits. Corticomedullary differentiation is preserved. There is no hydronephrosis. There are no masses. The imaged portion of the abdominal aorta is within normal limits. There is moderate free fluid. The technologist noted reverse flow in the right portal vein. IMPRESSION: 1. Cholelithiasis and a sludge filled gallbladder with gallbladder wall thickening but without josselin pericholecystic edema. 2. Splenomegaly. 3. Evidence of cirrhosis. 4. Moderate ascites. 5. Other findings as described above. <Electronically signed by Paolo Batres > 01/21/21 [id number]
== END ==
LOC: M RAD 08:42
PROVIDERS: ATTEND Physician Assistant
DX: K74.60 Unspecified cirrhosis of liver (principal); K80.20 Calculus of gallbladder without cholecystitis without obstruction; R18.8 Other ascites; R16.1 Splenomegaly, not elsewhere classified

== ENCOUNTER → 2021-01-28 | Outpatient (CLI) | payer OTHER ==
[2021-01-28 11:35] LABS: INR 1.69; PROTHROMBIN TIME 20.3 SECONDS (12.5-14.3)
[2021-01-28 11:36] LABS: PARTIAL THROMBOPLASTIN TIME 41.1 SECONDS (24.2-38.5)
[2021-01-28 12:17] LABS: CALCIUM LEVEL 7.9 MG/DL (8.5-10.1); CREATININE FOR GFR 1.23 MG/DL (0.55-1.30); GLOMERULAR FILTRATION RATE 49.6 (>58); POTASSIUM SERUM 3.8 MEQ/L (3.5-5.1)
== END ==
LOC: M LAB 09:38
PROVIDERS: ATTEND Internal Medicine Gastroenterology
DX: I85.10 Secondary esophageal varices without bleeding (principal)

== ENCOUNTER → 2021-02-08 | Outpatient (CLI) | payer OTHER ==
[~2021-02-08] MED LIST changes: +LIDOCAINE 1% MDV 20ML VIAL As Ordered ONE
[2021-02-08 11:14] VITALS: BP 101/58
[2021-02-08 11:17] LABS: SOURCE, BODY FLUID ALBUMIN ASCITES; SOURCE, BODY FLUID TOT PROTEIN ASCITES; TOTAL PROTEIN, BODY FLUID 0.9 G/DL (NOT ESTABLISHED)
[2021-02-08 11:26] LABS: APPEARANCE, BODY FLUID CLEAR (CLEAR); ASCITES FL COLOR YELLOW (COLORLESS); SOURCE, BODY FLUID ASCITES
--- NOTE | 2021-02-09 07:55 | REP ---
INDICATION: ASCITES. COMPARISON: None. TECHNIQUE: The procedure was performed under the direct supervision of Dr. Salinas. The risks and benefits of the procedure were explained to the patient and informed consent was obtained. The largest pocket of fluid was localized in the right lower quadrant using ultrasound guidance. The skin was prepped and draped in a sterile fashion. 7 cc of 1% lidocaine was used as a local anesthetic. An 8-Estonian multi side-hole catheter was inserted using trocar technique.5150 cc of yellow fluid was withdrawn with a sample sent to the lab for analysis. Estimated blood loss: Less than 1 cc The patient tolerated the procedure well and there were no immediate complications. After the appropriate amount of monitored convalescence, the patient was discharged from the department. FINDINGS: None IMPRESSION: Ultrasound-guided paracentesis [id number] cc of yellow fluid. <Electronically signed by Jean-Claude Garcia > 02/08/21 1819 <Electronically signed by Brandon Salinas > 02/09/21 0754
== END ==
LOC: M IRPRO 09:11
PROVIDERS: ATTEND Internal Medicine Gastroenterology
DX: R18.8 Other ascites (principal); I85.10 Secondary esophageal varices without bleeding
CPT/HCPCS: 49083; 82042; 84157; 88108; 88305; 88313; 89051; 96365; P9047

== ENCOUNTER 2021-03-08 08:01 | Inpatient (IN) | payer OTHER ==
[~2021-03-08] VITALS: Ht 175.3 cm; Wt 87.0 kg
[2021-03-08] VITALS (29 sets, daily range): BP systolic 67–142; BP diastolic 39–96
[~2021-03-08 08:01] MED LIST changes: -LIDOCAINE 1% MDV 20ML VIAL As Ordered ONE
[2021-03-08] MEDS ORDERED: MULTIVITAMIN -ADULT INJECTION 10 ML, THIAMINE INJection 100 MG, FOLIC ACID 1 MG in NS 1... IV ONE (08:30)
[2021-03-08] MEDS ORDERED: NS 1,000 ML IV ONE ×3 (08:35→11:20)
[2021-03-08 08:57] LABS: ABG BASE EXCESS -27.8 (-2.0-2.0); ABG HCO3 9.5 MEQ/L (22.0-26.0); ABG O2 SATURATION 85.6 % (95.0-99.0); ABG STANDARD HCO3 5.1 MEQ/L (22.0-26.0); ABG TOTAL CO2 12.2 MEQ/L (22.0-29.0)
[2021-03-08] MEDS: CHLORHEXIDINE GLUCONATE 0.12 % 15ML UDC (PERIDEX ORAL RINSE) MT SCH ×2 (09:00→22:26)
[2021-03-08 09:02] LABS: ABG pH (ARTERIAL) 6.653 UNITS (7.350-7.450)
--- NOTE | 2021-03-08 09:13 | REP ---
INDICATION: Altered Mental Status. COMPARISON: Comparison head CT study October 03, 2019.. TECHNIQUE: Helical scanning is acquired. 5 mm axial images were reformatted. Coronal MPR images were generated. FINDINGS: Bone window settings demonstrate an intact bony calvarium. There is no evidence of skull fracture or incidental bony calvarial lesion. The visualized paranasal sinuses appear clear. No intraorbital abnormality is seen. On soft tissue window setting images; the lateral, third, and fourth ventricles are normal in size and position. Matthews-white differentiation pattern is normal above and below the tentorium. There are is no evidence of intracranial hemorrhage. No mass, edema, infarction, or midline shift is seen. No extra-axial fluid collection is appreciated. There is mild generalized volume loss in this relatively young patient. IMPRESSION: Mild generalized volume loss. No change from comparison study. No acute intracranial abnormality.. <Electronically signed by Brandon Salinas > 03/08/21 0910
--- NOTE | 2021-03-08 09:32 | REP ---
INDICATION: Altered Mental Status. COMPARISON: PA and lateral chest dated 05/17/2018. TECHNIQUE: Portable AP chest with the patient semi upright. FINDINGS: The patient is rotated and there is anti lordotic angulation. There are left parahilar coarsened interstitial markings. The remainder of the visualized left lung is unremarkable. The visualized right lung is unremarkable. Cardiac size cannot be assessed because of patient rotation. IMPRESSION: Apparent coarsened left parahilar interstitial markings. This could be artifact from patient rotation. Depending on symptomatology and clinical concern repeat study might be considered. <Electronically signed by Tree Shook > 03/08/21 0951
[2021-03-08] MEDS ORDERED: CIPR500T39 PO (10:07)
[2021-03-08] MEDS ORDERED: LACT10SO3 PO (10:07)
[2021-03-08 10:32] LABS: ABG BASE EXCESS -23.3 (-2.0-2.0); ABG HCO3 10.4 MEQ/L (22.0-26.0); ABG O2 SATURATION 91.6 % (95.0-99.0); ABG PARTIAL PRESSURE O2 104.4 mmHg (75.0-100.0); ABG STANDARD HCO3 7.3 MEQ/L (22.0-26.0); ABG TOTAL CO2 12.5 MEQ/L (22.0-29.0)
[2021-03-08 10:35] LABS: ABG PARTIAL PRESSURE CO2 65.8 mmHg (35.0-45.0); ABG pH (ARTERIAL) 6.818 UNITS (7.350-7.450)
[2021-03-08 10:50] LABS: HEMATOCRIT 29.6 % (36.0-47.0); HEMOGLOBIN 8.9 g/dl (12.0-15.5); MEAN CORPUSCULAR HEMOGLOBIN 41.8 pg (27.0-33.0); MEAN CORPUSCULAR HGB CONC 30.1 g/dl (32.0-36.5); RED BLOOD COUNT 2.13 10^6/uL (4.00-5.40); WHITE BLOOD COUNT 2.5 10^3/uL (4.0-10.0)
[2021-03-08 10:59] LABS: PLATELET COUNT, AUTOMATED 61 10^3/uL (150-450)
[2021-03-08 11:09] LABS: ATYPICAL LYMPH 5 % (0-5); BASOPHILS 1 % (0-1); CRENATED RBC 2+; LYMPHOCYTES 53 % (16-44); METAMYELOCYTES 7 % (0-0); MONOCYTES 1 % (0-5); MYELOCYTES 2 % (0-0); NEUTROPHILS 6 % (28-66); PLATELET ESTIMATE DECREASED (NORMAL); POLYCHROMASIA 1+; TOXIC VACUOLATION 2+
[2021-03-08] MEDS ORDERED: FURO20TA2 PO (11:09)
[2021-03-08] MEDS ORDERED: SPIR50TA4 PO (11:09)
[2021-03-08] MEDS ORDERED: MED REC COMMENT (11:10)
[2021-03-08] MEDS ORDERED: HOME MED LIST COMPLETE! XX SCH (11:15)
[2021-03-08] MEDS ORDERED: LevoFLOXacin IV 750 MG in IV 1 EA IV ONE (11:20)
[2021-03-08] MEDS ORDERED: DEXTROSE 50% 50 ML SYRINGE IV STA (11:44)
[2021-03-08 11:45] LABS: BLOOD UREA NITROGEN 11 MG/DL (7-18); CALCIUM LEVEL 8.5 MG/DL (8.5-10.1); CARBON DIOXIDE LEVEL 12 MEQ/L (21-32); CHLORIDE LEVEL 104 MEQ/L (98-107); CREATININE FOR GFR 1.89 MG/DL (0.55-1.30); GLOMERULAR FILTRATION RATE 30.2 (>58); GLUCOSE, FASTING 33 MG/DL (70-100); POTASSIUM SERUM 5.9 MEQ/L (3.5-5.1); SODIUM LEVEL 131 MEQ/L (136-145)
[2021-03-08 11:46] LABS: ACETAMINOPHEN LEVEL 29.2 UG/ML (10.0-30.0); ALBUMIN 1.6 GM/DL (3.2-5.2); ALT/SGPT 20 U/L (12-78); BILIRUBIN,TOTAL 4.3 MG/DL (0.2-1.0); CK-MB VALUE MASS 13.9 NG/ML (<3.6); CPK CREATINE PHOSPHOKINASE 2467 U/L (26-192); ETHYL ALCOHOL (ETHANOL) < 0.003 % (0.000-0.010); MB/CK RELATIVE INDEX 0.56 (< OR =4); SALICYLATE LEVEL < 1.7 MG/DL (5.0-30.0); TOTAL PROTEIN 5.9 GM/DL (6.4-8.2); TROPONIN I 0.05 NG/ML (< 0.10)
[2021-03-08] MEDS ORDERED: MIDAZOLAM INJ 2MG/2ML VIAL (J2250 PER 1MG) As Ordered ONE (12:48)
[2021-03-08] MEDS ORDERED: NOREPINEPHRINE BITARTRATE 8 MG in D5W 492 ML IV SCH ×2 (12:50→18:00)
[2021-03-08] MEDS ORDERED: NOREPINEPHRINE 4 MG/4 ML AMP As Ordered ONE (12:50)
[2021-03-08] MEDS: LACTULOSE 20 GM/30 ML SYRUP UD NG SCH ×3 (13:00→22:26)
[2021-03-08] MEDS ORDERED: ETOMIDATE INJ 20MG/10ML VIAL IV STA (13:06)
[2021-03-08] MEDS ORDERED: MIDAZOLAM INJ 2MG/2ML VIAL (J2250 PER 1MG) IV STA (13:06)
[2021-03-08] MEDS ORDERED: ROCURONIUM BROMIDE 50 MG/5 ML VIAL IV ONE (13:10)
[2021-03-08] MEDS ORDERED: MIDAZOLAM INJ 2MG/2ML VIAL (J2250 PER 1MG) IV PRN (13:40)
[2021-03-08] MEDS ORDERED: VANCOMYCIN HCL 1,000 MG in IV FLUID PLACE HOLDER 1 EA IV SCH (13:50)
--- NOTE | 2021-03-08 14:01 | REP ---
INDICATION: post intubation/central line placement. COMPARISON: Today at 8:41 a.m. TECHNIQUE: Portable FINDINGS: The technique utilized in obtaining the radiograph is magnified the cardiac silhouette and increased the interstitial markings. Since the last examination an endotracheal tube has been placed the tip of which is in satisfactory position at the level of the aortic knob. Since the last examination a left-sided internal jugular central venous catheter has been placed the tip of which is in satisfactory position in the level of the superior vena cava. The patient, however, is tilted rotated to the right. Since the last examination a nasogastric tube is been placed the tip of which is in the region of the stomach fundus. Patchy opacities are seen in the right lower lobe representing a change from the prior exam. The left lung is clear. There is no change in the osseous structures. IMPRESSION: 1. Tubes and line as described above. 2. New right lower lobe opacity suspicious for subsegmental atelectatic change or possible acute pneumonia. Follow-up is recommended. <Electronically signed by Paolo Batres > 03/08/21 9925
[2021-03-08 14:19] LABS: PROTHROMBIN TIME 58.4 SECONDS (12.7-14.5)
[2021-03-08 14:27] LABS: INR 6.75
--- NOTE | 2021-03-08 14:46 | ROOPDOC ---
[facility] Report Of Operation Report of Operation DATE OF PROCEDURE: 03/08/21 PROCEDURE PERFORMED: Left internal jugular central venous cannulation. PREPROCEDURE DIAGNOSES: Septic shock. POSTPROCEDURE DIAGNOSES: Septic shock. PHYSICIAN: Dr. Eduardo MD ANESTHESIA: General. ESTIMATED BLOOD LOSS: Approximately 1 mL. COMPLICATIONS: None. PROCEDURE NOTE: A time out was performed. My hands were washed immediately prior to the procedure. I wore a surgical cap, mask with protective eyewear, full gown and sterile gloves throughout the procedure. The patient was placed in Trendelenburg position. LEFT neck region was prepped using chlorhexidine scrub and draped in sterile fashion using a full drape and sterile probe cover and sterile gel employed. The medial and lateral heads of the sternocleidomastoid muscle were identified as was the carotid pulse. The Internal Jugular vein was identified using the linear probe ultrasound. Anesthesia was achieved over the vein using 1% lidocaine. Using real-time out of plane guidance, the introducer needle was inserted into the Internal Jugular vein under direct ultrasound visualization. Venous blood was withdrawn. The syringe was removed and a guidewire was advanced into the introducer needle. The guidewire was visualized in the Internal Jugular Vein by ultrasound. A small incision was made at the skin surface with a scalpel and the introducer needle was exchanged for a dilator over the guidewire. After appropriate dilation was obtained, the dilator was exchanged over the wire for a triple lumen central venous catheter. The wire was removed and the catheter was sutured in place at 18 cm. A sterile shield was placed over the catheter at the insertion site. The patient tolerated the procedure without any hemodynamic compromise. At time of procedure completion, all ports aspirated and flushed properly. Post-procedure chest x-ray confirmed placement of the line and there was no evidence of pneumothorax. CLAUDIA MEJÍA MD Mar 08, 2021 14:46
[2021-03-08] MEDS ORDERED: VANCOMYCIN INTERMITTENT/PULSE DOSING BY CLINICAL PHARMACIST PER DOSING PROTOCOL XX SCH (14:50)
--- NOTE | 2021-03-08 14:51 | ROOPDOC ---
[facility] Report Of Operation Report of Operation DATE OF PROCEDURE: 03/08/21 PROCEDURE PERFORMED: Endotracheal intubation. PREPROCEDURE DIAGNOSES: Respiratory failure, acute metabolic encephalopathy. POSTPROCEDURE DIAGNOSES: Respiratory failure, acute metabolic encephalopathy. SURGEON: Dr. Eduardo MD ANESTHESIA: General with induction. ESTIMATED BLOOD LOSS: None. COMPLICATIONS: None. Medications use: 2 mg of Versed, 20 mg of etomidate, 40 mg of rocuronium. Cord visualized: Yes, Mallampati class II with partial visualization of the vocal cord Technique: Video-assisted laryngoscope/glidoscope Blade: 4.0 Endotracheal tube size: 7.5 Attempt: 1 Confirmations of endotracheal intubation: Bilateral breath sounds, end-tidal CO2 detector. ET tube secure: At 23 cm at the lips. CLAUDIA MEJÍA MD Mar 08, 2021 14:51
--- NOTE | 2021-03-08 14:52 | HPEPDOC ---
[facility] Medical History & Physical Date of Admission Mar 08, 2021 Date of Service: Mar 08, 2021 Primary Care Physician: VENESSA AKERS PA-C Attending Physician: CLAUDIA MEJÍA MD History and Physical CHIEF COMPLAINT: Confusion, fall HISTORY OF PRESENT ILLNESS: This is a 42-year-old female with past medical history of alcohol dependency with active alcohol abuse, alcoholic pancreatitis, alcoholic liver cirrhosis, history of childhood asthma, esophageal varices secondary to portal hypertension brought in by EMS for confusion and recurrent for. Patient is currently obtunded and unable to provide any meaningful history. However her boyfriend Darryn is bedside and able to provide some history to me. Patient has not been behaving like herself for the past 2 days. She has been very lethargic and sleepy. The only time she will get out of bed is when she has to go to the bathroom. However, she is unable to maintain her balance and had to recurrent fall when she tries to ambulate to the bathroom. The reason for why EMS was called was because her boyfriend whom she is currently living with witness her falling to the ground with face. She had no facial trauma. Her boyfriend also stated that patient has been drinking up until 2 days ago when she became obtunded. Patient was recently in the hospital back to 1/2 weeks ago to have elective paracentesis with 5 L of ascites fluid removed. Fluid analysis was consistent with portal hypertension. Upon admission to the hospital, patient was obtunded and unable to provide any meaningful history. Initial blood gas showed severe mixed metabolic and respiratory acidosis with pH of 6.6. She was put on BiPAP. Chest x-ray shows extremely low lung volumes. Labs are remarkable for significant leukopenia with significant bandemia of 22%. There was also evidence of MATHEW as evident with elevated creatinine. Sodium is 131. Serum lactic acid is 14. Ammonia level was in 400s. INR was supratherapeutic above 6. Due to her poor mental status, I intubated her for airway protection. CT scan of the brain showed no evidence of chronic or subacute infarct or bleeding. She is currently on vasopressor support for septic shock. I was consulted to admit the patient to the intensive care unit. PAST MEDICAL HISTORY: 1. Alcohol dependency. 2. Alcoholic liver cirrhosis. 3. Alcoholic pancreatitis. 4. Esophageal varices. 5. Portal hypertension. 6. History of childhood asthma. PAST SURGICAL HISTORY: 1. EGD with esophageal variceal banding. 2. Tonsillectomy Family history: Patient father is alive and healthy at age 80. Her mother from cirrhosis secondary to kerosene injection during childhood at age 47. She does have 1 brother who is age 52 who is alive and healthy. Her sister is age 50 who is alive and healthy. Social history: Patient lives independently with her boyfriend Darryn. She is . She has 5 adult children, 4 of which are biological. Her child age range from 25- 30. Or alive and healthy. The patient admits to 9 grandchildren who are alive and healthy. She denies any pets at home. She admits to drinking a quarter of vodka followed by several beers per day. Her last drink was about 2 days ago. She started drinking at age 32. She admits to smoking marijuana in the past but denies other illicit drugs or intravenous drug use. ALLERGIES: Please see below. REVIEW OF SYSTEMS: Unable to perform review of system as patient is already obtunded and on BiPAP in the process of getting intubated for airway protection. HOME MEDICATIONS: Please see below. PHYSICAL EXAMINATION: GENERAL APPEARANCE: Chronically ill-appearing, patient is obtunded. HEENT: No evidence of JVD or oral thrush. CARDIOVASCULAR: Regular rate rhythm with no evidence of murmur. LUNGS: Clear to auscultation with extremely low lung volume. Spider angiomata on the anterior chest wall. ABDOMEN: Significant amount of dilated periumbilical vein with large tense ascites with evidence of fluid shift. MUSCULOSKELETAL: No evidence of joint effusion. EXTREMITIES: Trace pedal edema which is pitting. NEUROLOGICAL: Patient is obtunded. PSYCHIATRIC: Unable to assess. LABORATORY DATA: See below. MICROBIOLOGY: Please see below. ASSESSMENT/PLAN: This is a 42-year-old female with past medical history of alcohol dependency with active alcohol abuse, alcoholic pancreatitis, alcoholic liver cirrhosis, history of childhood asthma, esophageal varices secondary to portal hypertension admitted to the ICU with septic shock, metabolic encephalopathy and respiratory failure. 1. Septic shock present on admission secondary to SBP versus urinary tract infection -20 cc/kg of isotonic crystalloid already menstrual. She has been started on vancomycin and Levaquin (history of penicillin allergy). I strongly suspect her source of infection is likely from intra-abdominal as 7 L of paracentesis fluid appears to be cloudy and infected. -Status post paracentesis with several liters of fluid aspirated. Fluid analysis was sent for cell count with differential, albumin, total protein, fluid culture. -Continue Levophed and vasopressin for vasopressor support. 2. Acute hypoxic and hypercapnic respiratory failure -Secondary to inability to protect her airway. She has been intubated. Ventilator setting with respiratory rate 24, tidal volume 420, PEEP 8, FiO2 80%. We are targeting high minute ventilation due to her severe combined respiratory and metabolic acidosis. 3. Metabolic and hepatic encephalopathy -Lactulose has been ordered. Daily sedation holiday. 4. Anion gap metabolic acidosis, lactic acidosis -Management as #2. Trend lactic acid. 5. Acute kidney injury with differential ATN versus hepatorenal syndrome -Gudino catheter insertion. Monitor frequent urine output. 6. Decompensated liver cirrhosis -Her sodium meld score indicate her 90 days mortality is 60 to 65%. This is poor prognosis. She is not a candidate for liver transplant as she continues to consume alcohol. 7. Thrombocytopenia -Multifactorial given she has underlying septic shock and liver cirrhosis with hypersplenism. 8. Coagulopathy -Secondary to liver cirrhosis. Currently she has no clinical evidence of bleeding. We will continue to monitor her PT/INR daily. We will hold chemical DVT prophylaxis. She will be on SCD for DVT prophylaxis. 9. Hypoglycemia -Secondary to decompensated liver cirrhosis with liver failure. Frequent Accu- Chek every 2 hour. Hypoglycemic protocol. I will start her on D10 at 30 cc an hour. 10. History of esophageal varices -We will continue to hold nonselective beta-mary beth in the setting of septic shock. 11. Hyperbilirubinemia -Secondary to decompress the liver cirrhosis. Her calculated sodium meld score carries a 60 to 65% 90 days mortality. DVT prophylaxis: SCD (supratherapeutic INR) GI prophylaxis: Protonix Prognosis: Very critical and Poor. She does not have any healthcare proxy. I spoke with her daughters and share all the information regarding her ongoing poor prognosis and critical illness state. Currently they are in the process of discussing about CODE STATUS. For now they would like to keep her full code. Vital Signs Vital Signs Date Time Temp Pulse Resp B/P (MAP) Pulse Ox O2 Delivery O2 Flow Rate FiO2 03/08/21 14:05 95.5 72/50 03/08/21 13:30 95 100 03/08/21 12:26 70 NIPPV (BIPAP/CPAP) 03/08/21 10:05 22 03/08/21 08:57 15.0 Laboratory Data Labs 24H Laboratory Tests 2 03/08/21 08:06: Ammonia 421H 03/08/21 08:38: Blood Gas Bicarbonate Standard 5.1L, Arterial Blood pH 6.653*L, Arterial Blood Partial Pressure CO2 88.0*H, Arterial Blood Partial Pressure O2 97.0, Arterial Blood Total CO2 12.2L, Arterial Blood HCO3 9.5L, Arterial Blood Base Excess - 27.8L, Arterial Blood Oxygen Saturation 85.6L 03/08/21 09:25: Lactic Acid Level 14.2*H 03/08/21 10:23: Blood Gas Bicarbonate Standard 7.3L, Arterial Blood pH 6.818*L, Arterial Blood Partial Pressure CO2 65.8*H, Arterial Blood Partial Pressure O2 104.4H, Arterial Blood Total CO2 12.5L, Arterial Blood HCO3 10.4L, Arterial Blood Base Excess - 23.3L, Arterial Blood Oxygen Saturation 91.6L 03/08/21 10:34: Neutrophils (%) (Auto) , Nucleated Red Blood Cells % (auto) 10.2H, Neutrophils 6L, Band Neutrophils 25H, Lymphocytes (Manual) 53H, Monocytes (Manual) 1, Basophils (Manual) 1, Metamyelocytes 7H, Myelocytes 2H, Atypical Lymphocytes 5, Polychromasia 1+, Macrocytosis 4+, Crenated Cell 2+, Toxic Vacuolation 2+, Platelet Estimate DECREASED, Immature Platelet Fraction 8.6, Anion Gap 15, Glomerular Filtration Rate 30.2L, Calcium Level 8.5, Total Bilirubin 4.3H, Direct Bilirubin 2.0H, Aspartate Amino Transf (AST/SGOT) 127H, Alanine Aminotransferase (ALT/SGPT) 20, Alkaline Phosphatase 48, Total Creatine Kinase 2467H, Creatine Kinase MB 13.9H, Creatine Kinase MB Relative Index 0.56, Troponin I 0.05, Total Protein 5.9L, Albumin 1.6L, Albumin/Globulin Ratio 0.4L, Thyroid Stimulating Hormone (TSH) 4.050H, Salicylates Level < 1.7L, Acetaminophen Level 29.2, Ethyl Alcohol Level < 0.003 03/08/21 12:23: Bedside Glucose (Misc Panel) 106H 03/08/21 13:33: POC pH (Misc Panel) 6.929*L, POC Base Excess (Misc Panel) -21.0L, POC Saturated Percent O2 (Misc) 91L, POC pO2 (Misc Panel) 101.0, POC pCO2 (Misc Panel) 55.8H, POC HCO3 (Misc Panel) 11.7L, POC Total CO2 (Misc Panel) 13.0L 03/08/21 13:54: Prothrombin Time 58.4H, Prothromb Time International Ratio 6.75*H, Activated Partial Thromboplast Time 142.0*H CBC/BMP Laboratory Tests 03/08/21 10:34 Microbiology Microbiology 03/08/21 Blood Culture, Received Pending 03/08/21 Respiratory Virus Panel (PCR) ([facility]) - Final, Complete 03/08/21 Blood Culture, Received Pending Home Medications Scheduled Azelastine HCl (Azelastine HCl) 0.1 % Spr, 1 SPRAY NA DAILY Ciprofloxacin HCl (Ciprofloxacin HCl) 500 Mg Tablet, 500 MG PO DAILY Furosemide (Furosemide) 20 Mg Tablet, 20 MG PO BID Lactulose (Lactulose) 10 Gm/15 Ml Solution, 15 ML PO BID Multivitamin (Multivitamins) 1 Each Capsule, 1 CAP PO DAILY Propranolol HCl (Propranolol HCl) 10 Mg Tablet, 10 MG PO BID Spironolactone (Spironolactone) 50 Mg Tablet, 50 MG PO BID Thiamine HCl (Vitamin B-1) 100 Mg Tablet, 100 MG PO DAILY Scheduled PRN Albuterol Sulfate (Proair Hfa) 108 Mcg/Act Aer, 2 PUFF INH for SOB/WHEEZING Miscellaneous Medications [Med Rec Comment] OBTAINED MED LIST FROM [facility] Allergies Coded Allergies: Penicillins (Verified Allergy, Severe, ANGIOEDEMA, 11/15/18) bee venom protein (honey bee) (Verified Allergy, Severe, anaphylaxis, 11/15/18) TREES (Verified Allergy, Intermediate, SUMAC = HIVES, 11/15/18) A-FIB/CHADSVASC A-FIB History Current/History of A-Fib/PAF?: No Current PO Anticoag Therapy: No CLAUDIA MEJÍA MD Mar 08, 2021 14:52
[2021-03-08] MEDS ORDERED: dexmedeTOMidine 200 MCG in IV 1 EA IV SCH (15:00)
[2021-03-08] MEDS ORDERED: VANCOMYCIN HCL 1,000 MG, VIAL MATE ADAPTER 1 EACH in NS 250 ML IV ONE (15:00)
[2021-03-08] MEDS ORDERED: VASOPRESSIN INJ 20 UNITS/ML VIAL As Ordered ONE (15:28)
[2021-03-08] MEDS ORDERED: VANCOMYCIN HCL 750 MG, VIAL MATE ADAPTER 1 EACH in NS 250 ML IV ONE (16:00)
[2021-03-08] MEDS ORDERED: GLUCOSE 4GM CHEW TABLET PO PRN (16:15)
[2021-03-08] MEDS ORDERED: GLUCAGON INJ 1MG VIAL SC PRN (16:15)
[2021-03-08] MEDS ORDERED: DEXTROSE 50% 50 ML SYRINGE IV PRN (16:15)
[2021-03-08] MEDS ORDERED: D10W 1,000 ML IV SCH (16:15)
[2021-03-08] MEDS ORDERED: VASOPRESSIN INJ 20 UNITS in NS 499 ML IV SCH (16:20)
--- NOTE | 2021-03-08 16:33 | ROOPDOC ---
[facility] Report Of Operation Report of Operation DATE OF PROCEDURE: 03/08/21 PROCEDURE PERFORMED: Abdominal paracentesis. PREPROCEDURE DIAGNOSES: Ascites. POSTPROCEDURE DIAGNOSES: Ascites. SURGEON: Dr Eduardo MD ANESTHESIA: Local with 1% lidocaine. ESTIMATED BLOOD LOSS: Approximately 1 mL. COMPLICATIONS: None. SPECIMENS REMOVED: 7L Cloudy turbid fluid PROCEDURE NOTE: A time-out was performed. My hands were washed immediately prior to the proce dure. I wore a surgical cap, mask with protective eyewear, sterile gloves throughout the procedure. The area was cleansed and draped in usual sterile fashion using chlorhexidine scrub. Anesthesia was achieved with 1% lidocaine. The rightside of the abdomen was prepped and draped in a sterile fashion using chlorhexidine scrub. 1% lidocaine was used to numb the skin, soft tissue and peritoneum. The paracentesis catheter was inserted and advanced with negative pressure until _ colored fluid was aspirated. Approximately 100 mL of ascitic fluid was collected and sent for laboratory analysis. The catheter was then connected to the vaccutainer and 7 liters of additional ascitic fluid were drained. The catheter was removed and no leaking was noted. A bandaid was placed over the puncture wound. The patient tolerated the procedure well without any immediate complications. Estimated blood loss was 1cc. CLAUDIA MEJÍA MD Mar 08, 2021 16:33
[2021-03-08] MEDS ORDERED: LevoFLOXacin IV 250 MG in IV 1 EA IV SCH (17:00)
[2021-03-08 17:23] LABS: SPEC. GRAVITY BODY FLUIDS 1.013 (NOT ESTABLISHED)
[2021-03-08 17:35] LABS: SOURCE, BODY FLUID ALBUMIN ASCITES; SOURCE, BODY FLUID GLUCOSE ASCITES; SOURCE, BODY FLUID TOT PROTEIN ASCITES; TOTAL PROTEIN, BODY FLUID 1.7 G/DL (NOT ESTABLISHED)
[2021-03-08] MEDS ORDERED: ROCURONIUM BROMIDE 50 MG/5 ML VIAL ONE (18:27)
[2021-03-08] MEDS ORDERED: ETOMIDATE INJ 20MG/10ML VIAL ONE (18:27)
--- NOTE | 2021-03-08 19:19 | ECGEPIP ---
[facility] - ED Test Date: 2021-03-08 Pat Name: PETAR PATINO Department: Room: - Gender: Female Contract Loader: : 1970 Requested By: ROSA ELENA Morris Order Number: [id number] Reading MD: Elizabeth Mary Measurements Intervals [place] Rate: 81 P: 42 MO: 200 QRS: 48 QRSD: 86 T: -1 QT: 372 QTc: 432 Interpretive Statements Normal sinus rhythm Low voltage QRS Septal infarct , age undetermined similar 06/05/19 Electronically Signed on 03-08-2021 19:18:48 EDT by Elizabeth Mary
[2021-03-08] MEDS ORDERED: HEPARIN SOD (PORCINE) 5000UNITS/ML 1ML VIAL/SYRINGE SC SCH (21:00)
[2021-03-08 22:13] LABS: ABG BASE EXCESS -25.9 (-2.0-2.0); ABG O2 SATURATION 89.6 % (95.0-99.0); ABG PARTIAL PRESSURE CO2 26.2 mmHg (35.0-45.0); ABG PARTIAL PRESSURE O2 75.9 mmHg (75.0-100.0); ABG STANDARD HCO3 5.2 MEQ/L (22.0-26.0); ABG TOTAL CO2 5.8 MEQ/L (22.0-29.0)
[2021-03-08 22:15] LABS: ABG pH (ARTERIAL) 6.902 UNITS (7.350-7.450)
[2021-03-08] MEDS ORDERED: NOREPINEPHRINE BITARTRATE 16 MG in D5W 484 ML IV SCH ×2 (22:15)
[2021-03-08] MEDS ORDERED: SODIUM BICARBONATE 8.4% INJ 50 ML SYRINGE IV STA ×2 (22:20→23:04)
--- NOTE | 2021-03-08 23:20 | ROOPDOC ---
[facility] Report Of Operation Report of Operation DATE OF PROCEDURE: 03/08/21 PROCEDURE PERFORMED: Right femoral arterial line insertion. PREPROCEDURE DIAGNOSES: Septic shock. POSTPROCEDURE DIAGNOSES: Septic shock. Consent obtained from: verbal consent from daughter Leonarda SURGEON: Dr Eduardo MD ANESTHESIA: Local lidocaine 1%. ESTIMATED BLOOD LOSS: Approximately 3 mL. COMPLICATIONS: none. DESCRIPTION OF PROCEDURE: After procedure consent was obtained from patient's family member (Leonarda), timeout was performed to verify patient, procedure, and site to be performed. Patient's right groin was cleaned and sterilized with chlorhexidine. The area was drapped in sterile fashion. Right femoral artery was visualized under ultrasound guidance. Artery was cannulated using Seldinger's technique and 10cm arterial catheter was inserted. The catheter was transduced and arterial waveforms were apperciated. The area was dressed. Patient tolerated the procedure without any complication. CLAUDIA MEJÍA MD Mar 08, 2021 23:20
[2021-03-08 23:49] LABS: ALBUMIN 1.9 GM/DL (3.2-5.2); CALCIUM LEVEL 7.4 MG/DL (8.5-10.1); CREATININE FOR GFR 2.39 MG/DL (0.55-1.30); MAGNESIUM LEVEL 2.5 MG/DL (1.8-2.4); PHOSPHORUS LEVEL 7.1 MG/DL (2.5-4.9); POTASSIUM SERUM 5.8 MEQ/L (3.5-5.1)
[2021-03-08] MEDS ORDERED: CALCIUM GLUCONATE 1,000 MG, VIAL MATE ADAPTER 1 EACH in NS 100 ML IV ONE (23:55)
[2021-03-09] VITALS (14 sets, daily range): BP systolic 0–137; BP diastolic 0–61
[2021-03-09] MEDS ORDERED: VASOPRESSIN INJ 20 UNITS in NS 499 ML IV SCH ×2
--- NOTE | 2021-03-09 00:33 | ROOPDOC ---
[facility] Report Of Operation Report of Operation DATE OF PROCEDURE: 03/09/21 PROCEDURE PERFORMED: Temporary dialysis catheter insertion. PREPROCEDURE DIAGNOSES: MATHEW, metabolic acidosis, lactic acidosis. POSTPROCEDURE DIAGNOSES: MATHEW, metabolic acidosis, lactic acidosis. Consent obtained from: Leonarda (daughter, verbal consent) SURGEON: Dr Eduardo MD ANESTHESIA: Local, 1% lidocaine. ESTIMATED BLOOD LOSS: Approximately 4 mL. COMPLICATIONS: None. FINDINGS: It appears she has air under her hemidiaphragm DESCRIPTION OF PROCEDURE: A time out was performed. My hands were washed immediately prior to the procedure. I wore a surgical cap, mask with protective eyewear, full gown and sterile gloves throughout the procedure. The patient was placed in Trendelenburg position. Right neck region was prepped using chlorhexidine scrub and draped in sterile fashion using a full drape and sterile probe cover and sterile gel employed. The medial and lateral heads of the sternocleidomastoid muscle were identified as was the carotid pulse. The Internal Jugular vein was identified using the linear probe ultrasound. Anesthesia was achieved over the vein using 1% lidocaine. Using real-time out of plane guidance, the introducer needle was inserted into the Internal Jugular vein under direct ultrasound visualization. Venous blood was withdrawn. The syringe was removed and a guidewire was advanced into the introducer needle. The guidewire was visualized in the Internal Jugular Vein by ultrasound. A small incision was made at the skin surface with a scalpel and the introducer needle was exchanged for a dilator over the guidewire. After appropriate dilation was obtained, the dilator was exchanged over the wire for a double lumen dialysis venous catheter (13F). The wire was removed and the catheter was sutured in place at 17 cm. A sterile shield was placed over the catheter at the insertion site. The patient tolerated the procedure without any hemodynamic compromise. At time of procedure completion, all ports aspirated and flushed properly. Post-procedure chest x-ray confirmed placement of the line and there was no evidence of pneumothorax. However, there appears to have air under the hemidiaphragm. CLAUDIA MEJÍA MD Mar 09, 2021 00:33
[2021-03-09] MEDS ORDERED: SODIUM BICARBONATE 8.4% INJ 50 ML SYRINGE IV STA (00:47)
[2021-03-09] MEDS ORDERED: MORPHINE 2 MG/ML 1ML VIAL (J2270) IV PRN (00:50)
[2021-03-09] MEDS ORDERED: LORazepam 2 MG/ML VIAL IV PRN (00:50)
--- NOTE | 2021-03-09 01:00 | REPVR ---
PROCEDURE INFORMATION: Exam: XR Chest Exam date and time: 03/09/2021 12:35 AM Age: 50 years old Clinical indication: Other vascular access device placement or adjustment; Other: Dialysis; Patient HX: 1st image taken w/ patient sitting upright, 2nd image patient semi-upright approximately 2 minutes apart. Additional info: S/P dialysis catheter placement TECHNIQUE: Imaging protocol: XR of the chest. Views: 1 view. COMPARISON: 1. CR Chest, 1 view 03/08/2021 1:[address] ABD/PEL W/IV ORAL CONTRAST 05/20/2018 12:17:[address] Chest with contrast 05/20/2018 12:17:12 PM FINDINGS: Tubes, catheters and devices: There is a right internal jugular central venous line terminating in the junction of the superior vena cava and right atrium. A left internal jugular central venous line terminates in the distal superior vena cava. There is an enteric tube coursing below the diaphragm and terminating in the stomach. Lungs: The lung volumes are low. There is bibasilar atelectasis or consolidation. Pleural spaces: Unremarkable. No pleural effusion. No pneumothorax. Heart/Mediastinum: The cardiac silhouette is top normal in size. Bones/joints: Unremarkable. Intraperitoneal space: There is a intraperitoneal free air most noticeable beneath the right hemidiaphragm. IMPRESSION: 1. Intraperitoneal free air. 2. Bibasilar atelectasis or consolidation. 3. Right internal jugular central venous line terminating in the junction of the superior vena cava and right atrium. Electronically signed by: Chuck Mclean On 03/09/2021 01:00:08 AM
--- NOTE | 2021-03-09 01:14 | IPNPDOC ---
Subjective Date Seen The patient was seen on 03/09/21. Subjective Chief Complaint/HPI Patient remains obtunded and unable to response any commands despite not being on sedations. General: Reports: ROS Unobtainable (Patient is encephalopathic and obtunded. ) Objective Physical Examination General Exam: Positive: Severe Distress, Other (obtunded. ) Eye Exam: Positive: Sclera icteric, Other Eye Symptoms (dilated pupils but reactive to light.) ENT Exam: Positive: Atraumatic Neck Exam: Negative: JVD Chest Exam: Positive: Normal air movement (low lung volumes) Heart Exam: Positive: Rate Normal, Tachycardic; Negative: Murmurs Abdomen Exam: Positive: BS Hypoactive, Other (tympanic to precussion) Skin Exam: Positive: Other skin issue (jaundice); Negative: Rash Assessment /Plan Assessment This is a 42-year-old female with past medical history of alcohol dependency wi th active alcohol abuse, alcoholic pancreatitis, alcoholic liver cirrhosis, history of childhood asthma, esophageal varices secondary to portal hypertension admitted to the ICU with septic shock, metabolic encephalopathy and respiratory failure. Plan/VTE VTE Prophylaxis Ordered?: Yes Plan Advance Directives: DNR, Comfort care, Other Advance Directive (DNI) 1. Septic shock present on admission secondary to higly suspected SBP + Gram negative bacteremia -20 cc/kg of isotonic crystalloid already given. She has been started on vancomycin and Levaquin (history of penicillin allergy). I strongly suspect her source of infection is likely from intra-abdominal as 7 L of paracentesis fluid appears to be cloudy and infected. Blood culture positive for gram negative likely from intraperitoneal source. -Status post paracentesis with several liters of fluid aspirated. Fluid analysis was sent for cell count with differential, albumin, total protein, fluid culture. -Despite antibiotic and hemodynamic support, patient continues to deteriorate. She still has persistent lactic acidosis. Right before we are about to initiate CRRT, family wants to transition her to comfort care. 2. Acute hypoxic and hypercapnic respiratory failure -Secondary to inability to protect her airway. She has been intubated. Ventilator setting with respiratory rate 28, tidal volume 420, PEEP 8, FiO2 80%. We are targeting high minute ventilation due to her severe combined respiratory and metabolic acidosis. 3. Metabolic and hepatic encephalopathy -Lactulose has been ordered. 4. Anion gap metabolic acidosis, lactic acidosis -Management as #2. CRRT was about to initiate but family opted for comfort care. -multiple amps of sodium bicarb given while waiting for family to get here to have a chance to say their goodbyes. 5. Acute kidney injury with differential ATN versus hepatorenal syndrome -management as #4. 6. Decompensated liver cirrhosis -Her sodium meld score indicate her 90 days mortality is 60 to 65%. This is poor prognosis. She is not a candidate for liver transplant as she continues to consume alcohol. 7. Thrombocytopenia -Multifactorial given she has underlying septic shock and liver cirrhosis with hypersplenism. 8. Coagulopathy -Secondary to liver cirrhosis. Currently she has no clinical evidence of bleeding. We will continue to monitor her PT/INR daily. We will hold chemical DVT prophylaxis. She will be on SCD for DVT prophylaxis. 9. Hypoglycemia -Secondary to decompensated liver cirrhosis with liver failure. Frequent Accu- Chek every 2 hour. Hypoglycemic protocol. I will start her on D10 at 30 cc an hour. 10. History of esophageal varices -We will continue to hold nonselective beta-mary beth in the setting of septic shock. 11. Hyperbilirubinemia -Secondary to decompress the liver cirrhosis. Her calculated sodium meld score carries a 60 to 65% 90 days mortality. DVT prophylaxis: SCD (supratherapeutic INR) GI prophylaxis: Protonix Prognosis: extremely poor, grave with demise inevitable. Family wants to transition her to comfort care. She has been made DNR/DNI. Disposition comfort care VS, I&O, 24H, Fishbone Vital Signs/I&O Vital Signs Date Time Temp Pulse Resp B/P (MAP) Pulse Ox O2 Delivery O2 Flow Rate FiO2 03/08/21 23:00 97.3 95 28 111/54 92 Ventilator 60 03/08/21 08:57 15.0 I&O- Last 24 Hours up to 6 AM 03/09/21 06:00 Intake Total 5191.0 ml Output Total 8350 ml Balance -3159.0 ml Laboratory Data 24H LABS Laboratory Tests 2 03/08/21 08:06: Ammonia 421H 03/08/21 08:38: Blood Gas Bicarbonate Standard 5.1L, Arterial Blood pH 6.653*L, Arterial Blood Partial Pressure CO2 88.0*H, Arterial Blood Partial Pressure O2 97.0, Arterial Blood Total CO2 12.2L, Arterial Blood HCO3 9.5L, Arterial Blood Base Excess - 27.8L, Arterial Blood Oxygen Saturation 85.6L 03/08/21 09:25: Lactic Acid Level 14.2*H 03/08/21 10:23: Blood Gas Bicarbonate Standard 7.3L, Arterial Blood pH 6.818*L, Arterial Blood Partial Pressure CO2 65.8*H, Arterial Blood Partial Pressure O2 104.4H, Arterial Blood Total CO2 12.5L, Arterial Blood HCO3 10.4L, Arterial Blood Base Excess - 23.3L, Arterial Blood Oxygen Saturation 91.6L 03/08/21 10:34: Neutrophils (%) (Auto) , Nucleated Red Blood Cells % (auto) 10.2H, Neutrophils 6L, Band Neutrophils 25H, Lymphocytes (Manual) 53H, Monocytes (Manual) 1, Basophils (Manual) 1, Metamyelocytes 7H, Myelocytes 2H, Atypical Lymphocytes 5, Polychromasia 1+, Macrocytosis 4+, Crenated Cell 2+, Toxic Vacuolation 2+, Platelet Estimate DECREASED, Immature Platelet Fraction 8.6, Anion Gap 15, Glomerular Filtration Rate 30.2L, Calcium Level 8.5, Total Bilirubin 4.3H, Direct Bilirubin 2.0H, Aspartate Amino Transf (AST/SGOT) 127H, Alanine Aminotransferase (ALT/SGPT) 20, Alkaline Phosphatase 48, Total Creatine Kinase 2467H, Creatine Kinase MB 13.9H, Creatine Kinase MB Relative Index 0.56, Troponin I 0.05, Total Protein 5.9L, Albumin 1.6L, Albumin/Globulin Ratio 0.4L, Thyroid Stimulating Hormone (TSH) 4.050H, Salicylates Level < 1.7L, Acetaminophen Level 29.2, Ethyl Alcohol Level < 0.003 03/08/21 12:23: Bedside Glucose (Misc Panel) 106H 03/08/21 13:33: POC pH (Misc Panel) 6.929*L, POC Base Excess (Misc Panel) -21.0L, POC Saturated Percent O2 (Misc) 91L, POC pO2 (Misc Panel) 101.0, POC pCO2 (Misc Panel) 55.8H, POC HCO3 (Misc Panel) 11.7L, POC Total CO2 (Misc Panel) 13.0L 03/08/21 13:35: Lactic Acid Followup at 4 Hours 11.8*H 03/08/21 13:54: Prothrombin Time 58.4H, Prothromb Time International Ratio 6.75*H, Activated Partial Thromboplast Time 142.0*H 03/08/21 16:12: Bedside Glucose (Misc Panel) 49L 03/08/21 16:44: Methicillin-Resist S.aureus DNA PCR NOT DETECTED 03/08/21 16:45: Body Fluid Specific [place] 1.013, Body Fluid Glucose Source ASCITES, Body Fluid Glucose 0, Body Fluid Protein Source ASCITES, Body Fluid Total Protein 1.7, Body Fluid Albumin Source ASCITES, Body Fluid Albumin 0.5 03/08/21 18:14: Bedside Glucose (Misc Panel) 171H 03/08/21 20:35: Lactic Acid Level 13.3*H 03/08/21 22:03: Blood Gas Bicarbonate Standard 5.2L, Arterial Blood pH 6.902*L, Arterial Blood Partial Pressure CO2 26.2L, Arterial Blood Partial Pressure O2 75.9, Arterial Blood Total CO2 5.8L, Arterial Blood HCO3 5.0L, Arterial Blood Base Excess - 25.9L, Arterial Blood Oxygen Saturation 89.6L 03/08/21 22:38: Bedside Glucose (Misc Panel) 131H 03/08/21 22:59: Anion Gap 20H, Glomerular Filtration Rate 23.0L, Calcium Level 7.4L, Phosphorus Level 7.1H, Magnesium Level 2.5H, Albumin 1.9L 03/08/21 23:00: Whole Blood Ionized Calcium 4.4L CBC/BMP Laboratory Tests 03/08/21 10:34 03/08/21 22:59 Microbiology Microbiology 03/08/21 Acid Fast Stain, Received Pending 03/08/21 Mycobacterial Culture, Received Pending 03/08/21 Fungal Smear, Received Pending 03/08/21 Fungal Culture, Received Pending 03/08/21 Gram Stain, Received Pending 03/08/21 Body Fluid Culture, Received Pending 03/08/21 Blood Culture - Preliminary, Resulted 03/08/21 Respiratory Virus Panel (PCR) ([facility]) - Final, Complete 03/08/21 Blood Culture - Preliminary, Resulted CLAUDIA MEJÍA MD Mar 09, 2021 01:14
--- NOTE | 2021-03-09 06:11 | CR ---
CONSULTATION DATE: 03/08/2021 REQUESTING PHYSICIAN: CLAUDIA MEJÍA MD CONSULTING PHYSICIAN: KEILA SIDHU MD REASON FOR CONSULTATION: Management of severe metabolic acidosis in this patient with multiorgan failure including acute oliguric renal failure. CHIEF COMPLAINT: The patient was brought to the Emergency Room because of confusion and multiple falls. Note history was obtained from the medical team and from the patient's chart. Patient is unable to provide any unreliable history at this time because she is intubated at this time. HISTORY OF PRESENT ILLNESS: Tammy Gilmore is a 50-year-old female with a past medical history of alcoholic cirrhosis, active alcohol drinking, last drink was two days ago, history of alcoholic pancreatitis in the past, multiple other comorbidities as mentioned below. She was brought to the Emergency Room by her boyfriend because of severe weakness, being obtunded, multiple falls at home, very lethargic, unable to eat anything. When the patient was evaluated in the Emergency Room she was found to be hypotensive. She was in severe mixed metabolic and respiratory acidosis with a pH of 6.6. She was initially placed on BiPAP and later on she was intubated. Cultures on the very first day are positive for gram negative rods. She is in septic shock requiring two pressors, Levophed and Vasopressin. Patient has made a minimal amount of urine so far. She has severe lactic acidosis with a lactate of 13.3. Nephrology Service consult was requested on an urgent basis for further help in the management of this patient. The patient needed my immediate attention and I saw and evaluation the patient at the bedside in the ICU tonight. I discussed the plan of care with the ICU Team and with the patient's family members as well on the phone. PAST MEDICAL HISTORY: Alcoholism, alcoholic liver cirrhosis, alcoholic pancreatitis, esophageal varices in the past, portal hypertension, childhood asthma and a history of decompensated cirrhosis with ascites. PAST SURGICAL HISTORY: Status post EGD and esophageal variceal banding, status post tonsillectomy. Patient just got diagnostic and therapeutic paracentesis done and about 7.8 liters of very cloudy fluid was removed. ALLERGIES: Patient is allergic to penicillin, trees, bee venom. FAMILY HISTORY: There is no significant family history of endstage renal disease. SOCIAL HISTORY: The patient lives with her boyfriend. She is . She has five adult children, four of those children are biological. She was actively drinking about 1/4 of vodka and several beers everyday, the last drink was two days ago. She also smokes marijuana. REVIEW OF SYSTEMS: I was unable to do any review of systems because the patient was intubated by the time I saw her. PHYSICAL EXAMINATION: GENERAL: Patient is deeply jaundiced, laying in bed, intubated. She opens eyes on painful stimuli. VITAL SIGNS: Temperature is 97.3 degrees Fahrenheit, blood pressure 111/54, pulse is 95, respiratory rate of 28, saturating 92% on the vent with 60% FIO2. INTAKE AND OUTPUT: Urine output recorded so far is 150 ml. Paracentesis done is 7.8 liters. HEAD AND NECK: Pupils are equally round and reactive to light. She has deep scleral icterus. Neck is supple. She has an endotracheal tube. CARDIOVASCULAR: S1 and S2, tachycardia was noted. Trace edema of the bilateral lower extremities. Respiratory: Mildly decreased breath sounds at the bases, otherwise no active rales or rhonchi. ABDOMEN: Distended. There is a dressing on the right side from recent paracentesis done at the bedside today in the ICU. GENITOURINARY: She has an indwelling Gudino catheter, a very small amount of urine in the bag is noted. MUSCULOSKELETAL: No clubbing or cyanosis noted. SKIN: Patient has deep jaundice. FOOT PRESS OPERATOR: Patient is obtunded. She is intubated. She moves extremities on painful stimuli. LABORATORY DATA: CBC showed a WBC of 2.5, hemoglobin of 8.9, platelets of 61, INR is 6.75. Peritoneal fluid cell count is pending. Latest ABG showed a pH of 6.9, pCO2 of 26, pO2 75, bicarbonate is 5.8. O2 sat is 89%. BMP showed a sodium of 139, potassium 5.9, chloride 104, bicarbonate 12, BUN 11, creatinine is 1.8. Lactic acid is 13.3. Ionized calcium is 4.4. Toxicology: Ethyl alcohol level is less than 0.03. Microbiology: Initial blood cultures sent from the Emergency Room are positive for gram negative rods. IMAGING: A chest x-ray done in the Emergency Room showed a tube and lines in place, new right lower lobe opacity suspicious for subsegmental atelectasis for possible acute pneumonia. Head CT was done which showed mild generalized volume loss, no acute intracranial abnormality. CURRENT INPATIENT MEDICATIONS: Patient's medications were all reviewed by myself. She is currently getting a banana bag, she is getting D10 at 30 ml/hr. She is on Levophed. She was given Levaquin 750 IV x1 dose. She has been started on 750 mg IV q. 24 hourly, normal saline 3 liter bolus has been given in the ER. She is also on Vasopressin. Vancomycin 1 gram IV x1 dose was given. She has been started on Lactulose 30 ml q.i.d., Versed p.r.n. for agitation, Protonix 40 mg IV daily, sodium bicarbonate 100 mEq IV stat was given to the patient. ASSESSMENT AND PLAN: 1. Septic shock secondary to gram negative bacteremia, the most likely source is SBP. Patient already got therapeutic and diagnostic paracentesis done. She has been started on Vancomycin and Levaquin. She is allergic to penicillin. I am going to start the patient on albumin at this time which will help with shock in the setting of cirrhosis. The rest of the pressor management is as per the Critical Care Team. 2. Acute oliguric renal failure. Patient is in multiorgan failure secondary to shock. She has severe combined respiratory and metabolic acidosis. I discussed the poor prognosis of the patient with the family members, however family members still want to continue with the aggressive care and start the patient on dialysis. The patient is going to get a dialysis catheter and after that she will be started on CVVHDF. 3. Acute hypercapnic respiratory failure. Patient is vent dependent requiring 60% FIO2. There is a questionable right lower lobe pneumonia as well. Patient is already on Levaquin and that should cover for infection. 4. High anion gap metabolic acidosis and respiratory acidosis. Patient already got bicarb administration. No further need of IV bicarbonate administration now. Bicarbonate will be managed with dialysis now. 5. Decompensated liver cirrhosis secondary to alcohol abuse and ascites. The patient already got therapeutic and diagnostic paracentesis done. Patient is not a candidate for liver transplant at this time. She has a very high MELD score. 6. Hyperkalemia secondary to acute renal failure and severe metabolic acidosis. Patient is being started on hemodialysis, that should fix her potassium levels. 7. Pancytopenia, hemoglobin is 8.9. She has a history of esophageal varices as well. Transfuse p.r.n. for a hemoglobin below 8. Patient has low platelet counts because of cirrhosis and portal hypertension. 8. Disposition: Patient is in septic shock with multiorgan failure, history of alcohol abuse. Overall, she has a very poor prognosis, however she is still full code. I discussed the plan of care with the patient's daughters, Irma and Gale, over the phone tonight. Thank you for involving me in the care of this patient. I shall be happy to follow the patient along with you tomorrow morning. Total critical care time spent in the management of this patient tonight in the ICU excluding all the procedures was 1 hour and 45 minutes.
[2021-03-09 06:30] LABS: APPEARANCE, BODY FLUID TURBID (CLEAR); ASCITES FL COLOR YELLOW (COLORLESS); SOURCE, BODY FLUID ASCITES
[2021-03-09] MEDS ORDERED: PANTOPRAZOLE 40MG VIAL (C9113 PER 1) IV SCH (09:00)
--- NOTE | 2021-03-09 11:39 | DS.PDOC ---
Discharge Summary General Date of Admission Mar 08, 2021 at 13:36 Date of Discharge 03/09/2021 Primary Care Physician: ODETTE DILLARD MD Attending Physician: CLAUDIA MEJÍA MD Specialist/Consultants Involve: KEILA SIDHU MD Discharge Summary PROCEDURES PERFORMED DURING STAY: Endotracheal intubation, central venous catheter insertion, arterial line insertion, paracentesis, temporary dialysis catheter insertion. ADMITTING DIAGNOSES: 1. Septic shock secondary to spontaneous bacterial peritonitis with drain negative bacteremia. 2. Acute respiratory failure. 3. Metabolic/hepatic encephalopathy. 4. MATHEW. 5. Metabolic and lactic acidosis. 6. Decompensated liver cirrhosis. 7. Ascites. 8. Coagulopathy and thrombocytopenia. 9. Hyperbilirubinemia. 10. Alcohol dependency. 11. Alcoholic liver cirrhosis. 12. History of esophageal varices. 13. Portal hypertension. 14. Hyperkalemia. DISCHARGE DIAGNOSES: 1. .1. Septic shock secondary to spontaneous bacterial peritonitis with drain negative bacteremia. 2. Acute respiratory failure. 3. Metabolic/hepatic encephalopathy. 4. MATHEW. 5. Metabolic and lactic acidosis. 6. Decompensated liver cirrhosis. 7. Ascites. 8. Coagulopathy and thrombocytopenia. 9. Hyperbilirubinemia. 10. Alcohol dependency. 11. Alcoholic liver cirrhosis. 12. History of esophageal varices. 13. Portal hypertension. 14. Hyperkalemia. 15. Cardiopulmonary arrest COMPLICATIONS/CHIEF COMPLAINT: Ascites,Decompensated Hepatic Cirrhosis,Hepatic En. HISTORY OF PRESENT ILLNESS: This is a 42-year-old female with history of alcohol dependency, alcoholic liver cirrhosis, esophageal varices, alcoholic pancreatitis who was brought into the hospital by EMS due to altered mental status and recurrent fall. HOSPITAL COURSE: Upon admission to the hospital, patient was found to be hypotensive and encephalopathic. She was immediately put on BiPAP due to severe combined respiratory and metabolic acidosis. Her lactate was found to be 14. She has significant leukopenia with bandemia. Her abdomen was significantly distended and paracentesis was done with 8 L of grossly purulent drainage was removed. Her blood culture as well as ascites fluid culture all came back positive for gram-negative rods. She was immediately put on antibiotic with vancomycin and Levaquin. She also had MATHEW on admission with elevated creatinine. Due to her poor mental status and inability to protect her airway, she was emergently intubated. She was also put on vasopressor support for septic shock. She had worsening anuric renal failure with persistent lactic acidosis. Chest x-ray done right before at the time of her shows air in the diaphragm which I suspect likely bowel perforation from necrotic bowels secondary to significant vasopressor support. Because of the worsening renal failure and severe metabolic/lactic acidosis, nephrology was consulted to consider her for CRRT. She was not a transplant candidate as she she continues to drink up until 2 days prior to hospital admission. Right before CRRT was to be initiated, family called and decided to proceed with comfort care and make her DNR/DNI. Patient was transitioned to comfort care with combined family decision and she passed comfortably at 3:05 AM on March 07, 2021. This was the time of . Full physical examination at the time of her showed absence of brainstem reflexes, no pulse, no evidence of spontaneous respiratory drive. Condolences were given to family. Family declines autopsy. DISCHARGE MEDICATIONS: Please see below. ALLERGIES: Please see below. PHYSICAL EXAMINATION ON DISCHARGE: VITAL SIGNS: Please see below. Gross physical examination showed absence of brainstem reflexes. There was absence of heartbeat or pulse. There was absence of spontaneous respiratory drive. Patient was pronounced at 3:05 AM on March 09, 2021. LABORATORY DATA: Please see below. PROGNOSIS: Patient after being transitioned to comfort care DISCHARGE PLAN: Discharge to [facility] DISPOSITION: 20 . DISCHARGE CONDITION: Patient . TIME SPENT ON DISCHARGE: 30 minutes. Vital Signs/I&Os Vital Signs Date Time Temp Pulse Resp B/P (MAP) Pulse Ox O2 Delivery O2 Flow Rate FiO2 03/09/21 03:10 28 92 Ventilator 03/09/21 03:05 0 0/0 100 03/09/21 02:00 97.9 03/08/21 08:57 15.0 I&O- Last 24 Hours up to 6 AM 03/09/21 06:00 Intake Total 6824.0 ml Output Total 8350 ml Balance -1526.0 ml Laboratory Data Labs 24H Laboratory Tests 2 03/08/21 12:23: Bedside Glucose (Misc Panel) 106H 03/08/21 13:33: POC pH (Misc Panel) 6.929*L, POC Base Excess (Misc Panel) -21.0L, POC Saturated Percent O2 (Misc) 91L, POC pO2 (Misc Panel) 101.0, POC pCO2 (Misc Panel) 55.8H, POC HCO3 (Misc Panel) 11.7L, POC Total CO2 (Misc Panel) 13.0L 03/08/21 13:35: Lactic Acid Followup at 4 Hours 11.8*H 03/08/21 13:54: Prothrombin Time 58.4H, Prothromb Time International Ratio 6.75*H, Activated Partial Thromboplast Time 142.0*H 03/08/21 16:12: Bedside Glucose (Misc Panel) 49L 03/08/21 16:44: Methicillin-Resist S.aureus DNA PCR NOT DETECTED 03/08/21 16:45: Body Fluid Source ASCITES, Body Fluid Color YELLOW, Body Fluid Appearance T URBID, Body Fluid Specific [place] 1.013, Body Fluid WBC (Auto) 5460H, Body Fluid RBC (Auto) 2, Body Fluid Mononuclear Cells % Auto 64.6H, Fluid Polymorphonuclear Cell % Auto 35.4H, Body Fluid Glucose Source ASCITES, Body Fluid Glucose 0, Body Fluid Protein Source ASCITES, Body Fluid Total Protein 1 .7, Body Fluid Albumin Source ASCITES, Body Fluid Albumin 0.5 03/08/21 18:14: Bedside Glucose (Misc Panel) 171H 03/08/21 20:35: Lactic Acid Level 13.3*H 03/08/21 22:03: Blood Gas Bicarbonate Standard 5.2L, Arterial Blood pH 6.902*L, Arterial Blood Partial Pressure CO2 26.2L, Arterial Blood Partial Pressure O2 75.9, Arterial Blood Total CO2 5.8L, Arterial Blood HCO3 5.0L, Arterial Blood Base Excess - 25.9L, Arterial Blood Oxygen Saturation 89.6L 03/08/21 22:38: Bedside Glucose (Misc Panel) 131H 03/08/21 22:59: Anion Gap 20H, Glomerular Filtration Rate 23.0L, Calcium Level 7.4L, Phosphorus Level 7.1H, Magnesium Level 2.5H, Albumin 1.9L 03/08/21 23:00: Whole Blood Ionized Calcium 4.4L CBC/BMP Laboratory Tests 03/08/21 22:59 FSBS Laboratory Tests Test 03/08/21 12:23 03/08/21 16:12 03/08/21 18:14 03/08/21 22:38 Range/Units Bedside Glucose (Misc Panel) 106 49 171 131 70-105 MG/DL Microbiology Microbiology 03/08/21 Acid Fast Stain, Received Pending 03/08/21 Mycobacterial Culture, Received Pending 03/08/21 Fungal Smear, Received Pending 03/08/21 Fungal Culture, Received Pending 03/08/21 Gram Stain - Final, Resulted 03/08/21 Body Fluid Culture, Resulted Pending 03/08/21 Blood Culture - Preliminary, Resulted 03/08/21 Respiratory Virus Panel (PCR) ([facility]) - Final, Complete 03/08/21 Blood Culture - Preliminary, Resulted Discharge Medications Scheduled Azelastine HCl (Azelastine HCl) 0.1 % Spr, 1 SPRAY NA DAILY, (Reported) Ciprofloxacin HCl (Ciprofloxacin HCl) 500 Mg Tablet, 500 MG PO DAILY, (Reported) Furosemide (Furosemide) 20 Mg Tablet, 20 MG PO BID, (Reported) Lactulose (Lactulose) 10 Gm/15 Ml Solution, 15 ML PO BID, (Reported) Multivitamin (Multivitamins) 1 Each Capsule, 1 CAP PO DAILY, (Reported) Propranolol HCl (Propranolol HCl) 10 Mg Tablet, 10 MG PO BID, (Reported) Spironolactone (Spironolactone) 50 Mg Tablet, 50 MG PO BID, (Reported) Thiamine HCl (Vitamin B-1) 100 Mg Tablet, 100 MG PO DAILY, (Reported) Scheduled PRN Albuterol Sulfate (Proair Hfa) 108 Mcg/Act Aer, 2 PUFF INH for SOB/WHEEZING, (Reported) Miscellaneous Medications [Med Rec Comment] , (Reported) OBTAINED MED LIST FROM [facility] Allergies Coded Allergies: Penicillins (Verified Allergy, Severe, ANGIOEDEMA, 11/15/18) bee venom protein (honey bee) (Verified Allergy, Severe, anaphylaxis, 11/15/18) TREES (Verified Allergy, Intermediate, SUMAC = HIVES, 11/15/18) CLAUDIA MEJÍA MD Mar 09, 2021 11:39
[2021-03-09] MEDS ORDERED: LevoFLOXacin IV 750 MG in IV 1 EA IV SCH (12:00)
== END 2021-03-09 03:05 | disposition expired | DRG 720 ==
LOC: M ED 08:01 → EDBD 08:01 → M ED INP 13:36 → CANRESERV 13:58 → ENRESERV 13:58 → M ICU 15:05
PROVIDERS: ADMIT Internal Medicine Critical Care Medicine; ATTEND Internal Medicine Critical Care Medicine
PROC: 5A1935Z Respiratory Ventilation, Less than 24 Consecutive Hours (ICD-10-PCS; principal; 2021-03-08)
PROC: 0W9G3ZZ Drainage of Peritoneal Cavity, Percutaneous Approach (ICD-10-PCS; 2021-03-08)
PROC: 02HV33Z Insertion of Infusion Device into Superior Vena Cava, Percutaneous Approach (ICD-10-PCS; 2021-03-08)
PROC: 02HV33Z Insertion of Infusion Device into Superior Vena Cava, Percutaneous Approach (ICD-10-PCS; 2021-03-09)
PROC: 0JH63XZ Insertion of Tunneled Vascular Access Device into Chest Subcutaneous Tissue and Fascia, Percutaneous Approach (ICD-10-PCS; 2021-03-09)
DX: A41.50 Gram-negative sepsis, unspecified (principal); R65.21 Severe sepsis with septic shock; G93.41 Metabolic encephalopathy; J18.9 Pneumonia, unspecified organism; J96.01 Acute respiratory failure with hypoxia; N17.9 Acute kidney failure, unspecified; J96.02 Acute respiratory failure with hypercapnia; D61.818 Other pancytopenia; K65.2 Spontaneous bacterial peritonitis; E87.4 Mixed disorder of acid-base balance; E87.2 Acidosis; K76.6 Portal hypertension; I85.10 Secondary esophageal varices without bleeding; D68.4 Acquired coagulation factor deficiency; E87.5 Hyperkalemia; K70.31 Alcoholic cirrhosis of liver with ascites; K72.90 Hepatic failure, unspecified without coma; E16.2 Hypoglycemia, unspecified; E80.6 Other disorders of bilirubin metabolism; Z79.899 Other long term (current) drug therapy; Z88.0 Allergy status to penicillin; Z91.030 Bee allergy status